=== PATIENT | male | born 1965 | race American Indian/Alaskan Native ===

== ENCOUNTER 2017-12-25 08:51 | Emergency (ER) | payer MEDICAID, OTHER ==
--- NOTE | 2017-12-25 09:26 | EDM.PDOC ---
ED HPI GENERAL MEDICAL PROBLEM - General Chief Complaint: Gastrointestinal Problem Stated Complaint: [id number] CANT GO TO THE BATHROOM (constipated) Time Seen by Provider: 12/25/17 09:26 Source of Information: Reports: Patient, RN, RN Notes Reviewed History Limitations: Reports: No Limitations - History of Present Illness INITIAL COMMENTS - FREE TEXT/NARRATIVE: Pt presents to the ER from home by POV with c/o constipation. Pt reports onset of gen. abdominal pressure, and mild crampy pain yesterday. He tried for "a long time" yesterday to have a BM, but only had a small very hard stool despite the urge to go more. He admits to nausea, and chills. Denies severe abdominal pain, RLQ abd. pain, vomiting, or fever. Denies urinary Sx's. The pt has not tried any medications, OTC or home remedies. Onset: Gradual Onset Date: 12/24/17 Duration: Constant, Getting Worse Location: Reports: Abdomen Quality: Reports: Pressure (and cramping pain) Severity: Moderate Improves with: Reports: None Worsens with: Reports: None Associated Symptoms: Reports: No Other Symptoms Abdomen Pain Score (Numeric/FACES): 7 - Related Data Allergies Allergy/AdvReac Type Severity Reaction Status Date / Time codeine Allergy Nausea and Verified 08/16/14 13:17 Vomiting Home Meds: Home Meds Albuterol [Proventil HFA] 1 puff INH DAILY 08/16/14 [History] Aspirin [Halfprin] 81 mg PO DAILY 08/16/14 [History] Fluticasone/Salmeterol [Advair HFA 115-21] 1 puff INH BID 08/16/14 [History] Hydrochlorothiazide 50 mg PO DAILY 08/16/14 [History] Loratadine 10 mg PO DAILY PRN 08/16/14 [History] Ranitidine [Zantac] 150 mg PO DAILY 08/16/14 [History] amLODIPine [Norvasc] 5 mg PO DAILY 08/16/14 [History] traMADol [Ultram] 50 mg PO Q6H PRN 08/16/14 [History] Past Medical History Cardiovascular History: Reports: Hypertension Respiratory History: Reports: Asthma Endocrine/Metabolic History: Reports: Obesity/BMI 30+ Social & Family History - Family History Family Medical History: Noncontributory - Recreational Drug Use Recreational Drug Type: Reports: Marijuana/Hashish Recreational Drug Use Frequency: Weekly - Living Situation & Occupation Occupation: Employed ED ROS GENERAL - Review of Systems Review Of Systems: ROS reveals no pertinent complaints other than HPI. ED EXAM, GI/ABD - Physical Exam Exam: See Below Exam Limited By: No Limitations General Appearance: Alert, WD/WN, No Apparent Distress, Obese Eyes: Bilateral: Normal Appearance (no scleral icterus) Nose: Normal Inspection Throat/Mouth: Normal Inspection, Normal Lips, Normal Oropharynx, Normal Voice, No Airway Compromise Head: Atraumatic, Normocephalic Neck: Normal Inspection, Supple, Non-Tender, Full Range of Motion Respiratory/Chest: No Respiratory Distress, Lungs Clear, Normal Breath Sounds, No Accessory Muscle Use, Chest Non-Tender Cardiovascular: Regular Rate, Rhythm, No Edema, No Murmur GI/Abdominal Exam: Normal Bowel Sounds, Soft, Non-Tender, No Distention, No Abnormal Bruit. No: Guarding, Rigid, Rebound (Male) Exam: Deferred Rectal (Males) Exam: Deferred Back Exam: Normal Inspection, Full Range of Motion. No: CVA Tenderness (L), CVA Tenderness (R) Extremities: Normal Inspection, Normal Range of Motion, Non-Tender, No Pedal Edema, Normal Capillary Refill Neurological: Alert, Oriented, CN II-XII Intact, Normal Cognition, Normal Gait, No Motor/Sensory Deficits Psychiatric: Normal Affect, Normal Mood Skin Exam: Warm, Dry, Intact, Normal Color, No Rash Course - Vital Signs Last Recorded V/S: Last Vital Signs Temp 36.8 C 12/25/17 09:27 Pulse 89 12/25/17 09:27 Resp 16 12/25/17 09:27 BP 136/81 12/25/17 09:27 Pulse Ox 97 12/25/17 09:27 - Orders/Labs/Meds Orders: Active Orders 24 hr Category Date Time Status Peripheral IV Care [RC] . DIRECTED Care 12/25/17 10:12 Active DRUG SCREEN URINE BIORAD [URCHEM] Stat Lab 12/25/17 10:01 Ordered UA W/MICROSCOPIC [URIN] Stat Lab 12/25/17 10:01 Ordered Sodium Chloride 0.9% [Saline Flush] Med 12/25/17 10:11 Active 10 ml FLUSH ASDIRECTED PRN Peripheral IV Insertion Adult [OM.PC] Stat Oth 12/25/17 10:12 Ordered Medication Orders Sodium Chloride (Saline Flush) 10 ml FLUSH ASDIRECTED PRN PRN Reason: Keep Vein Open Last Admin: 12/25/17 10:46 Dose: 10 ml Labs: Laboratory Tests 12/25/17 12/25/17 12/25/17 Range/Units 09:42 09:42 10:01 WBC 17.1 H (5.0-10.0) 10^3/uL RBC 4.85 (4.6-6.2) 10^6/uL Hgb 14.3 (14.0-18.0) g/dL Hct 42.4 (40.0-54.0) % MCV 87.4 (80-100) fL MCH 29.5 (27.0-34.0) pg MCHC 33.7 (33.0-35.0) g/dL Plt Count 388 (150-450) 10^3/uL Neut % (Auto) 75.7 H (42.2-75.2) % Lymph % (Auto) 12.2 L (20.5-50.1) % Tift % (Auto) 10.1 H (2-8) % Eos % (Auto) 1.7 (1.0-3.0) % Baso % (Auto) 0.3 (0.0-1.0) % Sodium 132 L (135-145) mmol/L Potassium 4.4 (3.6-5.0) mmol/L Chloride 100 L (101-111) mmol/L Carbon Dioxide 23.0 (21.0-31.0) mmol/L Anion Gap 13.4 BUN 15 (7-18) mg/dL Creatinine 1.3 (0.6-1.3) mg/dL Est Cr Clr Drug Dosing 58.62 mL/min Estimated GFR (MDRD) 58 BUN/Creatinine Ratio 11.53 Glucose 110 H (74-105) mg/dL Calcium 9.5 (8.4-10.2) mg/dl Total Bilirubin 0.9 (0.2-1.0) mg/dL AST 42 (10-42) IU/L ALT 45 (10-60) IU/L Alkaline Phosphatase 57 (42-121) IU/L Total Protein 8.2 (6.7-8.2) g/dl Albumin 4.6 (3.2-5.5) g/dl Globulin 3.6 Albumin/Globulin Ratio 1.28 Amylase 28 (28-100) U/L Lipase 22 (22-51) U/L Urine Color Yellow (YELLOW) Urine Appearance Clear (CLEAR) Urine pH 7.0 (5.0-9.0) Ur Specific [place] 1.015 (1.005-1.030) Urine Protein Negative (NEGATIVE) Urine Glucose (UA) Negative (NEGATIVE) Urine Ketones Negative (NEGATIVE) Urine Occult Blood Negative (NEGATIVE) Urine Nitrite Negative (NEGATIVE) Urine Bilirubin Negative (NEGATIVE) Urine Urobilinogen 0.2 (0.2-1.0) mg/dL Ur Leukocyte Esterase Negative (NEGATIVE) Urine RBC Not seen /HPF Urine WBC 0-5 (0-5/HPF) /HPF Ur Epithelial Cells Not seen /HPF Urine Bacteria Occasional (0-FEW/HPF) /HPF Urine Opiates Screen (NEGATIVE) Ur Oxycodone Screen (NEGATIVE) Urine Methadone Screen (NEGATIVE) Ur Barbiturates Screen (NEGATIVE) U Tricyclic Antidepress (NEGATIVE) Ur Phencyclidine Scrn (NEGATIVE) Ur Amphetamine Screen (NEGATIVE) U Methamphetamines Scrn (NEGATIVE) Urine MDMA Screen (NEGATIVE) U Benzodiazepines Scrn (NEGATIVE) Urine Cocaine Screen (NEGATIVE) U Marijuana (THC) Screen (NEGATIVE) Ethyl Alcohol < 5 mg/dL 12/25/17 Range/Units 10:01 WBC (5.0-10.0) 10^3/uL RBC (4.6-6.2) 10^6/uL Hgb (14.0-18.0) g/dL Hct (40.0-54.0) % MCV (80-100) fL MCH (27.0-34.0) pg MCHC (33.0-35.0) g/dL Plt Count (150-450) 10^3/uL Neut % (Auto) (42.2-75.2) % Lymph % (Auto) (20.5-50.1) % Tift % (Auto) (2-8) % Eos % (Auto) (1.0-3.0) % Baso % (Auto) (0.0-1.0) % Sodium (135-145) mmol/L Potassium (3.6-5.0) mmol/L Chloride (101-111) mmol/L Carbon Dioxide (21.0-31.0) mmol/L Anion Gap BUN (7-18) mg/dL Creatinine (0.6-1.3) mg/dL Est Cr Clr Drug Dosing mL/min Estimated GFR (MDRD) BUN/Creatinine Ratio Glucose (74-105) mg/dL Calcium (8.4-10.2) mg/dl Total Bilirubin (0.2-1.0) mg/dL AST (10-42) IU/L ALT (10-60) IU/L Alkaline Phosphatase (42-121) IU/L Total Protein (6.7-8.2) g/dl Albumin (3.2-5.5) g/dl Globulin Albumin/Globulin Ratio Amylase (28-100) U/L Lipase (22-51) U/L Urine Color (YELLOW) Urine Appearance (CLEAR) Urine pH (5.0-9.0) Ur Specific [place] (1.005-1.030) Urine Protein (NEGATIVE) Urine Glucose (UA) (NEGATIVE) Urine Ketones (NEGATIVE) Urine Occult Blood (NEGATIVE) Urine Nitrite (NEGATIVE) Urine Bilirubin (NEGATIVE) Urine Urobilinogen (0.2-1.0) mg/dL Ur Leukocyte Esterase (NEGATIVE) Urine RBC /HPF Urine WBC (0-5/HPF) /HPF Ur Epithelial Cells /HPF Urine Bacteria (0-FEW/HPF) /HPF Urine Opiates Screen Negative (NEGATIVE) Ur Oxycodone Screen Negative (NEGATIVE) Urine Methadone Screen Negative (NEGATIVE) Ur Barbiturates Screen Negative (NEGATIVE) U Tricyclic Antidepress Negative (NEGATIVE) Ur Phencyclidine Scrn Negative (NEGATIVE) Ur Amphetamine Screen Negative (NEGATIVE) U Methamphetamines Scrn Negative (NEGATIVE) Urine MDMA Screen Negative (NEGATIVE) U Benzodiazepines Scrn Negative (NEGATIVE) Urine Cocaine Screen Negative (NEGATIVE) U Marijuana (THC) Screen Positive H (NEGATIVE) Ethyl Alcohol mg/dL Meds: Medications Generic Name Dose Route Start Last Admin Trade Name Freq PRN Reason Stop Dose Admin Sodium Chloride 10 ml 12/25/17 10:11 12/25/17 10:46 Saline Flush FLUSH 10 ml ASDIRECTED PRN Administration Keep Vein Open Discontinued Medications Generic Name Dose Route Start Last Admin Trade Name Freq PRN Reason Stop Dose Admin Iopamidol 100 ml 12/25/17 10:31 12/25/17 11:20 Isovue-300 (61%) IVPUSH 12/25/17 10:32 100 ml ONETIME ONE Administration Ondansetron HCl 4 mg 12/25/17 09:31 12/25/17 09:44 Zofran Odt PO 12/25/17 09:32 4 mg ONETIME ONE Administration - Radiology Interpretation Free Text/Narrative:: [facility] [place] [facility] Final Radiology Report Call: [phone] assistance Online chat: [email or web address] Name: KATI GALAN Age: 52Years M Date: 12/25/2017 SSN: -- : [id number] Study: CT ABDOMEN/PELVIS W Requesting Physician: JAMEY SHRESTHA Images: [id number] Addl Studies: Provided Clinical History: Contrast: With Contrast Medium: [id number] Contrast Amount: 100 mL Contrast Method: left hand Page 1 of 2 EXAM: CT Abdomen and Pelvis With Intravenous Contrast CLINICAL HISTORY: The patient is 52 years-old, male; Signs and symptoms; Nausea and other: Abd pain, wbc 17,000 TECHNIQUE: Axial computed tomography images of the abdomen and pelvis with intravenous contrast. All CT scans at this facility use at least one of these dose optimization techniques: automated exposure control; mA and/or kV adjustment per patient size (includes targeted exams where dose is matched to clinical indication); or iterative reconstruction. Coronal and sagittal reformatted images were created and reviewed. CONTRAST: 100 mL of [id number] administered intravenously. COMPARISON: No relevant prior studies available. FINDINGS: Lung bases: Unremarkable. No mass. No consolidation. ABDOMEN: Liver: Unremarkable. No mass. Gallbladder and bile ducts: Unremarkable. No ductal dilation. Pancreas: Unremarkable. No mass. No ductal dilation. Spleen: Unremarkable. No splenomegaly. Adrenals: Unremarkable. No mass. Kidneys and ureters: No solid mass. No hydronephrosis. KATI GALAN | Final Radiology Report CONFIDENTIALITY STATEMENT This report is intended only for use by the referring physician, and only in accordance with law. If you received this in error, call [phone]. Page 2 of 2 Stomach and bowel: Bowel wall thickening in the ascending colon, minimal pericolonic edema/inflammation. No obstruction. Unremarkable small bowel. Underdistention of the stomach, gastric wall thickening cannot be excluded. PELVIS: Appendix: No findings to suggest acute appendicitis. Bladder: Underdistended bladder. Reproductive: No acute findings. ABDOMEN and PELVIS: Intraperitoneal space: No free fluid or pneumoperitoneum. No abscess. Bones/joints: No acute findings. Soft tissues: Unremarkable. Vasculature: No abdominal aortic aneurysm. Lymph nodes: No significant adenopathy. IMPRESSION: Ascending colitis, consider followup colonoscopy. Thank you for allowing us to participate in the care of your patient. Dictated and Authenticated by: Hung Perdue MD 12/25/2017 12:10 PM Central Time Departure - Departure Time of Disposition: 12:12 Disposition: Home, Self-Care 01 Condition: Good Clinical Impression: Colitis Constipation Qualifiers: Constipation type: unspecified constipation type Qualified Code(s): K59.00 - Constipation, unspecified - Discharge Information Instructions: Constipation, Adult, Colitis Forms: ED Department Discharge Additional Instructions: Rx: Cipro 500mg Rx: Flagyl 500mg Rx: Miralax Drink plenty of water. Eat fresh fruits and vegetables. Follow up in clinic this week for recheck and discuss a referral to a GI specialist for colonoscopy with your doctor. - My Orders Last 24 Hours: My Active Orders 12/25/17 10:01 DRUG SCREEN URINE BIORAD [URCHEM] Stat UA W/MICROSCOPIC [URIN] Stat 12/25/17 10:11 Sodium Chloride 0.9% [Saline Flush] 10 ml FLUSH ASDIRECTED PRN 12/25/17 10:12 Peripheral IV Care [RC] . DIRECTED Peripheral IV Insertion Adult [OM.PC] Stat - Assessment/Plan Last 24 Hours: My Active Orders 12/25/17 10:01 DRUG SCREEN URINE BIORAD [URCHEM] Stat UA W/MICROSCOPIC [URIN] Stat 12/25/17 10:11 Sodium Chloride 0.9% [Saline Flush] 10 ml FLUSH ASDIRECTED PRN 12/25/17 10:12 Peripheral IV Care [RC] . DIRECTED Peripheral IV Insertion Adult [OM.PC] Stat
[2017-12-25 09:28] VITALS: BP 136/81
[2017-12-25] MEDS ORDERED: Ondansetron 4 MG Tab.DIS PO ONE (09:31)
[2017-12-25 10:09] LABS: ANION GAP 13.4; CHLORIDE,CL 100 mmol/L (101-111); SODIUM,NA 132 mmol/L (135-145)
[2017-12-25] MEDS ORDERED: Sodium Chloride 0.9% 10 ML Syringe FLUSH PRN (10:11)
[2017-12-25] MEDS ORDERED: Iopamidol 612 MG/ML 100 ML Bottle IVPUSH ONE (10:31)
== END 2017-12-25 12:30 | disposition home or self-care (01) ==
LOC: DL.ED 08:51
DX: K52.9 Noninfective gastroenteritis and colitis, unspecified (principal); K59.00 Constipation, unspecified; E66.9 Obesity, unspecified; I10 Essential (primary) hypertension; Z88.5 Allergy status to narcotic agent; Z79.82 Long term (current) use of aspirin
CPT/HCPCS: 36415; 74177; 80053; 80305; 81001; 82150; 83690; 85025; 99284; A9270; G0480; J7050; Q9967

== ENCOUNTER 2020-03-01 12:17 | Emergency (ER) | payer MEDICAID, OTHER ==
[2020-03-01] MEDS ORDERED: Albuterol/Ipratropium 3.0-0.5 MG/3 ML Neb Soln NEB ONE (12:28)
[2020-03-01] MEDS ORDERED: predniSONE 20 MG Tab PO ONE (12:28)
[2020-03-01 12:29] VITALS: BP 129/69
[2020-03-01] MEDS ORDERED: LORazepam 0.5 MG Tab PO ONE (12:29)
[2020-03-01] MEDS ORDERED: Lactulose Soln 10 GM/15 ML 30 ML UD Cup PO ONE (12:29)
[2020-03-01] MEDS ORDERED: Albuterol/Ipratropium 3.0-0.5 MG/3 ML Neb Soln ONE (12:31)
[2020-03-01 12:38] VITALS: PULSE 92
--- NOTE | 2020-03-01 12:55 | EDM.PDOC ---
Scribed by Katie Stahl 03/01/20 1233 for Danny Longoria MD ED HPI GENERAL MEDICAL PROBLEM - General Chief Complaint: Respiratory Problem Stated Complaint: AMBULANCE Time Seen by Provider: 03/01/20 12:24 Source of Information: Reports: Patient, EMS, RN, RN Notes Reviewed History Limitations: Reports: No Limitations - History of Present Illness INITIAL COMMENTS - FREE TEXT/NARRATIVE: Patient arrives from home by [facility] with c/o wheezing, asthma flare up, constipation, and anxiety. Pt reports that he has had some increased shortness of breath for a couple of days. He says he has daily anxiety for years. Also c/o frequent problems with constipation. Denies fever or chills. He says he has anxiety from worrying about his children, and plans to f/u with [facility]. Onset: Gradual Duration: Constant Location: Reports: Chest Quality: Reports: Other (Denies pain) Severity: Moderate Improves with: Reports: Medication (Albuterol nebulizer treatments) Worsens with: Reports: None Associated Symptoms: Reports: No Other Symptoms Treatments HORSE BREAKER: Reports: Breathing Treatments - Related Data Allergies Allergy/AdvReac Type Severity Reaction Status Date / Time codeine Allergy Nausea and Verified 08/16/14 13:17 Vomiting Home Meds: Home Meds Albuterol [Proventil HFA] 1 puff INH DAILY 08/16/14 [History] Aspirin [Halfprin] 81 mg PO DAILY 08/16/14 [History] Fluticasone/Salmeterol [Advair HFA 115-21] 1 puff INH BID 08/16/14 [History] Loratadine 10 mg PO DAILY PRN 08/16/14 [History] Ranitidine [Zantac] 150 mg PO DAILY 08/16/14 [History] amLODIPine [Norvasc] 5 mg PO DAILY 08/16/14 [History] hydroCHLOROthiazide [Hydrochlorothiazide] 50 mg PO DAILY 08/16/14 [History] traMADol [Ultram] 50 mg PO Q6H PRN 08/16/14 [History] Past Medical History Cardiovascular History: Reports: Hypertension Respiratory History: Reports: Asthma Gastrointestinal History: Reports: Chronic Constipation Psychiatric History: Reports: Anxiety Endocrine/Metabolic History: Reports: Obesity/BMI 30+ Social & Family History - Family History Family Medical History: Noncontributory - Caffeine Use Caffeine Use: Reports: Coffee, Soda, Tea - Alcohol Use Alcohol Use History: No - Recreational Drug Use Recreational Drug Use: Yes Drug Use in Last 12 Months: Yes Recreational Drug Type: Reports: Marijuana/Hashish, Oxycodone, Vicodin Recreational Drug Use Frequency: Patient Refuses To Answer Recreational Drug Route: Reports: Oral - Living Situation & Occupation Occupation: Employed ED ROS GENERAL - Review of Systems Review Of Systems: Comprehensive ROS is negative, except as noted in HPI. ED EXAM, GENERAL - Physical Exam Exam: See Below Exam Limited By: No Limitations General Appearance: Alert, WD/WN, No Apparent Distress, Anxious Eye Exam: Bilateral Eye: Normal Inspection Nose: Normal Inspection Throat/Mouth: Normal Lips, Normal Voice, No Airway Compromise Head: Atraumatic, Normocephalic Neck: Normal Inspection Respiratory/Chest: No Respiratory Distress, No Accessory Muscle Use, Chest Non- Tender, Wheezing. No: Crackles, Rales, Rhonchi, Stridor Cardiovascular: Regular Rate, Rhythm, No Edema GI/Abdominal: Normal Bowel Sounds, Soft, Non-Tender Back Exam: Normal Inspection Extremities: Normal Inspection, Normal Range of Motion, Non-Tender, No Pedal Edema, Normal Capillary Refill. No: Joint Swelling Neurological: Alert, Oriented, No Motor/Sensory Deficits Psychiatric: Normal Affect, Anxious Skin Exam: Warm, Dry, Intact, Normal Color, No Rash Course - Vital Signs Last Recorded V/S: Last Vital Signs Temp 98.3 F 03/01/20 12:28 Pulse 92 03/01/20 12:28 Resp 18 03/01/20 12:28 BP 129/69 03/01/20 12:28 Pulse Ox 91 L 03/01/20 12:28 - Orders/Labs/Meds Orders: Active Orders 24 hr Category Date Time Status RT Aerosol Therapy [RC] ASDIRECTED Care 03/01/20 12:28 Active Meds: Medications Discontinued Medications Generic Name Dose Route Start Last Admin Trade Name Marshall PRN Reason Stop Dose Admin Albuterol/Ipratropium 3 ml 03/01/20 12:28 03/01/20 12:35 Duoneb 3.0-0.5 Mg/3 Ml NEB 03/01/20 12:29 3 ml ONETIME ONE Administration Albuterol/Ipratropium Confirm 03/01/20 12:31 03/01/20 12:35 Duoneb 3.0-0.5 Mg/3 Ml Administered 03/01/20 12:32 Not Given Dose 3 ml .ROUTE .STK-MED ONE Lactulose 40 gm 03/01/20 12:29 03/01/20 12:39 Cephulac PO 03/01/20 12:30 40 gm ONETIME ONE Administration Lorazepam 1 mg 03/01/20 12:29 03/01/20 12:39 Ativan PO 03/01/20 12:30 1 mg ONETIME ONE Administration Prednisone 60 mg 03/01/20 12:28 03/01/20 12:39 Prednisone PO 03/01/20 12:29 60 mg ONETIME ONE Administration - Re-Assessments/Exams Free Text/Narrative Re-Assessment/Exam: 03/01/20 12:45 Pt reports feeling improved following tx in ER and wishes to go home. Departure - Departure Time of Disposition: 12:48 Disposition: Home, Self-Care 01 Condition: Good Clinical Impression: Acute asthma Constipation Qualifiers: Constipation type: other constipation type Qualified Code(s): K59.09 - Other constipation Anxiety disorder Qualifiers: Anxiety disorder type: generalized anxiety disorder Qualified Code(s): F41.1 - Generalized anxiety disorder - Discharge Information *PRESCRIPTION DRUG MONITORING PROGRAM REVIEWED*: Not Applicable *COPY OF PRESCRIPTION DRUG MONITORING REPORT IN PATIENT TAHIR: Not Applicable Instructions: Constipation, Adult, [id number], Asthma Attack, Living With Anxiety Forms: ED Department Discharge Additional Instructions: Rx: Prednisone 20mg Rx: Lactulose Syrup Use your Albuterol nebulizer every four hours while awake until wheezing resolves and breathing improves. Drink plenty of water. Follow up in clinic in 3 to 4 days for recheck. Sepsis Event Note (ED) - Focused Exam Vital Signs: Vital Signs Temp Pulse Resp BP Pulse Ox Pulse Ox 03/01/20 12:28 98.3 F 92 18 129/69 92 L 91 L - My Orders Last 24 Hours: My Active Orders 03/01/20 12:28 RT Aerosol Therapy [RC] ASDIRECTED - Assessment/Plan Last 24 Hours: My Active Orders 03/01/20 12:28 RT Aerosol Therapy [RC] ASDIRECTED I have read and agree with the documentation that has been completed regarding this visit. By signing this record, I attest that the documentation was completed in my physical presence and is an accurate record of the encounter.
== END 2020-03-01 12:54 | disposition home or self-care (01) ==
LOC: DL.ED 12:17
DX: J45.901 Unspecified asthma with (acute) exacerbation (principal); K59.09 Other constipation; I10 Essential (primary) hypertension; E66.9 Obesity, unspecified; Z79.82 Long term (current) use of aspirin; Z79.899 Other long term (current) drug therapy; Z88.5 Allergy status to narcotic agent; Z68.31 Body mass index [BMI] 31.0-31.9, adult
CPT/HCPCS: 94640; 99285; A9270; J7512; 99283; J7620-GY

== ENCOUNTER 2020-03-21 10:34 | Emergency (ER) | payer MEDICAID, OTHER ==
[2020-03-21] MEDS ORDERED: Sodium Chloride 0.9% 10 ML Syringe FLUSH PRN (10:35)
--- NOTE | 2020-03-21 10:37 | EDM.PDOC ---
ED HPI GENERAL MEDICAL PROBLEM - General Chief Complaint: Gastrointestinal Problem Stated Complaint: [facility] [place] Time Seen by Provider: 03/21/20 10:37 Source of Information: Reports: Patient, EMS, Old Records, RN, RN Notes Reviewed History Limitations: Reports: No Limitations - History of Present Illness INITIAL COMMENTS - FREE TEXT/NARRATIVE: Pt sent from [facility] by Joshua Frias NP with report that pt was found to have a Hgb of 5.9 in clinic today. He presented to clinic with complaint of constipation and dark stools. He denies sydnie blood or melena, nausea, vomiting, shortness of breath, chest pain, or lightheadedness. He admits to fatigue and occasion mild to moderate pain in the epigastric and left sided abdomen. Denies history of alcohol abuse, or prior GI bleed. Records indicate he had a Hgb of 14 in December 2019. No history of anticoagulant tx. He take Aspirin 81mg daily. Onset: Unknown/Unsure Location: Reports: Abdomen, Generalized Quality: Reports: Ache (epigastric) Severity: Mild Improves with: Reports: None Worsens with: Reports: None Associated Symptoms: Reports: No Other Symptoms - Related Data Allergies Allergy/AdvReac Type Severity Reaction Status Date / Time codeine Allergy Nausea and Verified 03/21/20 10:46 Vomiting Home Meds: Home Meds Albuterol [Proventil HFA] 1 puff INH QID 08/16/14 [History] Aspirin [Halfprin] 81 mg PO DAILY 08/16/14 [History] Fluticasone/Salmeterol [Advair HFA 115-21] 1 puff INH BID 08/16/14 [History] Loratadine 10 mg PO DAILY PRN 08/16/14 [History] Ranitidine [Zantac] 150 mg PO DAILY 08/16/14 [History] amLODIPine [Norvasc] 5 mg PO DAILY 08/16/14 [History] hydroCHLOROthiazide [Hydrochlorothiazide] 50 mg PO DAILY 08/16/14 [History] traMADol [Ultram] 50 mg PO Q6H PRN 08/16/14 [History] Albuterol Sulfate 1.25 mg IH Q4HR PRN 03/21/20 [History] Escitalopram Oxalate [Lexapro] 10 mg PO DAILY 03/21/20 [History] Hydrocortisone Acetate 25 mg RC BID 03/21/20 [History] Levothyroxine Sodium [Euthyrox] 75 mcg PO DAILY 03/21/20 [History] Omeprazole 20 mg PO DAILY 03/21/20 [History] diphenhydrAMINE HCL [Diphenhydramine HCl] 100 mg PO BEDTIME PRN 03/21/20 [History] lisinopriL [Lisinopril] 20 mg PO DAILY 03/21/20 [History] Past Medical History Cardiovascular History: Reports: Hypertension Respiratory History: Reports: Asthma Gastrointestinal History: Reports: Chronic Constipation Psychiatric History: Reports: Anxiety Endocrine/Metabolic History: Reports: Obesity/BMI 30+ Social & Family History - Family History Family Medical History: Noncontributory - Caffeine Use Caffeine Use: Reports: Coffee, Soda, Tea - Living Situation & Occupation Occupation: Employed ED ROS GENERAL - Review of Systems Review Of Systems: Comprehensive ROS is negative, except as noted in HPI. ED EXAM, GI/ABD - Physical Exam Exam: See Below Exam Limited By: No Limitations General Appearance: Alert, WD/WN, No Apparent Distress Eyes: Bilateral: Pale Conjunctiva Ears: Hearing Grossly Normal Nose: Normal Inspection, Normal Mucosa, No Blood Throat/Mouth: Normal Inspection, Normal Lips, Normal Voice, No Airway Compromise, Other (No gingival bleeding) Head: Atraumatic, Normocephalic Neck: Normal Inspection, Supple, Non-Tender, Full Range of Motion Respiratory/Chest: No Respiratory Distress, Lungs Clear, Normal Breath Sounds, No Accessory Muscle Use, Chest Non-Tender Cardiovascular: Normal Peripheral Pulses, Regular Rate, Rhythm, No Edema, No Gallop, No JVD, No Murmur, No Rub. No: Tachycardia GI/Abdominal Exam: Normal Bowel Sounds, Soft, Non-Tender, No Organomegaly, No Distention, No Abnormal Bruit, No Mass, Pelvis Stable (Male) Exam: Deferred Rectal (Males) Exam: Heme - Stool Back Exam: Normal Inspection Extremities: Normal Inspection, Normal Range of Motion, Non-Tender, Normal Capillary Refill, No Pedal Edema Neurological: Alert, Oriented, CN II-XII Intact, Normal Cognition, Normal Gait, No Motor/Sensory Deficits Psychiatric: Normal Affect, Normal Mood Skin Exam: Warm, Dry, Intact, No Rash, Pallor. No: Ecchymosis, Jaundice, Petechiae Course - Vital Signs Last Recorded V/S: Last Vital Signs Temp 97.7 F 10/02/20 10:46 Pulse 80 03/21/20 10:46 Resp 16 03/21/20 10:46 BP 110/48 L 03/21/20 10:46 Pulse Ox 100 03/21/20 10:46 - Orders/Labs/Meds Orders: Active Orders 24 hr Category Date Time Status Notify Provider [RC] PRN Care 03/21/20 11:48 Active Peripheral IV Care [RC] . DIRECTED Care 03/21/20 10:35 Active Verify Patient Consent Obtain [RC] ASDIRECTED Care 03/21/20 11:47 Active RED BLOOD CELLS LP [BBK] Stat Lab 03/21/20 11:03 Results TYPE AND SCREEN [BBK] Stat Lab 03/21/20 11:03 Results UA RFX SURAJ AND CULT IF INDIC [URIN] Stat Lab 03/21/20 12:06 Received Pantoprazole [ProTONIX IV] 40 mg Med 03/21/20 12:00 Active Sodium Chloride 0.9% [Normal Saline] 100 ml IV .CONTINUOS Sodium Chloride 0.9% [Saline Flush] Med 03/21/20 10:35 Active 10 ml FLUSH ASDIRECTED PRN Blood Transfusion Reflex Orders [OM.PC] Routine Oth 03/21/20 10:36 Ordered Blood Transfusion Reflex Orders [OM.PC] Routine Oth 03/21/20 11:46 Ordered Peripheral IV Insertion Adult [OM.PC] Stat Oth 03/21/20 10:35 Ordered Transfuse Red Blood Cells [COMM] Stat Oth 03/21/20 11:46 Ordered Medication Orders Pantoprazole Sodium 40 mg/ (Sodium Chloride) 100 mls @ 20 mls/hr IV .CONTINUOS RIVERA Last Admin: 03/21/20 12:10 Dose: 20 mls/hr Documented by: JOESPH Sodium Chloride (Saline Flush) 10 ml FLUSH ASDIRECTED PRN PRN Reason: Keep Vein Open Last Admin: 03/21/20 12:11 Dose: 10 ml Documented by: JOESPH Labs: Laboratory Tests 03/21/20 03/21/20 03/21/20 Range/Units 11:03 11:03 11:03 WBC 7.0 (5.0-10.0) 10^3/uL RBC 3.25 L (4.6-6.2) 10^6/uL Hgb 5.6 L* D (14.0-18.0) g/dL Hct 21.2 L (40.0-54.0) % MCV 65.2 L D (80-100) fL MCH 17.2 L (27.0-34.0) pg MCHC 26.4 L (33.0-35.0) g/dL Plt Count 533 H D (150-450) 10^3/uL Neut % (Auto) 62.0 (42.2-75.2) % Lymph % (Auto) 14.4 L (20.5-50.1) % Wharton % (Auto) 10.4 H (2-8) % Eos % (Auto) 10.6 H (1.0-3.0) % Baso % (Auto) 2.6 H (0.0-1.0) % Add Manual Diff Yes Neutrophils % (Manual) 65 (42-75) % Lymphocytes % (Manual) 13 L (20-50) % Monocytes % (Manual) 9 H (2-8) % Eosinophils % (Manual) 10 H (1-3) % Basophils % (Manual) 3 Hypochromasia 4+ Microcytosis 2+ moderate Target Cells 1+ slight Ovalocytes 1+ slight PT 9.5 (9.0-12.0) SEC INR 1.0 (0.9-1.2) APTT 21.3 L (22.0-34.0) SEC Sodium 136 (136-145) mmol/L Potassium 4.3 (3.5-5.1) mmol/L Chloride 99 (98-107) mmol/L Carbon Dioxide 29 (21-32) mmol/L Anion Gap 12.3 (7-13) mEq/L BUN 9 (7-18) mg/dL Creatinine 1.48 H (0.70-1.30) mg/dL Est Cr Clr Drug Dosing 50.29 mL/min Estimated GFR (MDRD) 49 BUN/Creatinine Ratio 6.1 (No establ ref range) Glucose 97 (74-99) mg/dL Lactic Acid (0.4-2.0) mmol/L Calcium 8.7 (8.5-10.1) mg/dL Total Bilirubin 0.3 (0.2-1.0) mg/dL AST 20 (15-37) U/L ALT 24 (16-63) U/L Alkaline Phosphatase 59 (46-116) U/L Total Protein 6.9 (6.4-8.2) g/dL Albumin 3.2 L (3.4-5.0) g/dL Globulin 3.7 Albumin/Globulin Ratio 0.86 Amylase 23 L (25-115) U/L Lipase 67 L (73-393) U/L Blood Type Gel Antibody Screen Crossmatch 03/21/20 03/21/20 Range/Units 11:03 11:03 WBC (5.0-10.0) 10^3/uL RBC (4.6-6.2) 10^6/uL Hgb (14.0-18.0) g/dL Hct (40.0-54.0) % MCV (80-100) fL MCH (27.0-34.0) pg MCHC (33.0-35.0) g/dL Plt Count (150-450) 10^3/uL Neut % (Auto) (42.2-75.2) % Lymph % (Auto) (20.5-50.1) % Wharton % (Auto) (2-8) % Eos % (Auto) (1.0-3.0) % Baso % (Auto) (0.0-1.0) % Add Manual Diff Neutrophils % (Manual) (42-75) % Lymphocytes % (Manual) (20-50) % Monocytes % (Manual) (2-8) % Eosinophils % (Manual) (1-3) % Basophils % (Manual) Hypochromasia Microcytosis Target Cells Ovalocytes PT (9.0-12.0) SEC INR (0.9-1.2) APTT (22.0-34.0) SEC Sodium (136-145) mmol/L Potassium (3.5-5.1) mmol/L Chloride (98-107) mmol/L Carbon Dioxide (21-32) mmol/L Anion Gap (7-13) mEq/L BUN (7-18) mg/dL Creatinine (0.70-1.30) mg/dL Est Cr Clr Drug Dosing mL/min Estimated GFR (MDRD) BUN/Creatinine Ratio (No establ ref range) Glucose (74-99) mg/dL Lactic Acid 1.0 (0.4-2.0) mmol/L Calcium (8.5-10.1) mg/dL Total Bilirubin (0.2-1.0) mg/dL AST (15-37) U/L ALT (16-63) U/L Alkaline Phosphatase (46-116) U/L Total Protein (6.4-8.2) g/dL Albumin (3.4-5.0) g/dL Globulin Albumin/Globulin Ratio Amylase (25-115) U/L Lipase (73-393) U/L Blood Type O POSITIVE Gel Antibody Screen Negative Crossmatch See Detail Meds: Medications Generic Name Dose Route Start Last Admin Trade Name Freq PRN Reason Stop Dose Admin Pantoprazole Sodium 40 mg/ 100 mls @ 20 mls/hr 03/21/20 12:00 03/21/20 12:10 Sodium Chloride IV 20 mls/hr .CONTINUOS RIVERA Administration Sodium Chloride 10 ml 03/21/20 10:35 03/21/20 12:11 Saline Flush FLUSH 10 ml ASDIRECTED PRN Administration Keep Vein Open Discontinued Medications Generic Name Dose Route Start Last Admin Trade Name Freq PRN Reason Stop Dose Admin Acetaminophen 650 mg 03/21/20 11:46 03/21/20 12:09 Tylenol PO 03/21/20 11:47 650 mg NOW ONE Administration Diphenhydramine HCl 25 mg 03/21/20 11:46 03/21/20 12:07 Benadryl IV 03/21/20 11:47 25 mg ONETIME ONE Administration Furosemide 40 mg 03/21/20 11:46 03/21/20 12:09 Lasix IVPUSH 03/21/20 11:47 40 mg NOW ONE Administration Pantoprazole Sodium 80 mg 03/21/20 11:45 03/21/20 12:11 Protonix Iv IVPUSH 03/21/20 11:46 80 mg .BOLUS ONE Administration Departure - Departure Time of Disposition: 12:27 Disposition: DC/Tfer to Acute Hospital 02 Condition: Fair, Serious Clinical Impression: Anemia due to blood loss GI bleed Qualifiers: GI bleed type/associated pathology: unspecified gastrointestinal hemorrhage type Qualified Code(s): K92.2 - Gastrointestinal hemorrhage, unspecified - Discharge Information *PRESCRIPTION DRUG MONITORING PROGRAM REVIEWED*: Not Applicable *COPY OF PRESCRIPTION DRUG MONITORING REPORT IN PATIENT TAHIR: Not Applicable Forms: ED Department Discharge, Interfacility Transfer SADIE Sepsis Event Note (ED) - Focused Exam Vital Signs: Vital Signs Temp Pulse Resp BP Pulse Ox 03/21/20 10:46 97.7 F 80 16 110/48 L 100 - My Orders Last 24 Hours: My Active Orders 03/21/20 10:35 Peripheral IV Care [RC] . DIRECTED Sodium Chloride 0.9% [Saline Flush] 10 ml FLUSH ASDIRECTED PRN Peripheral IV Insertion Adult [OM.PC] Stat 03/21/20 10:36 Blood Transfusion Reflex Orders [OM.PC] Routine 03/21/20 11:03 RED BLOOD CELLS LP [BBK] Stat TYPE AND SCREEN [BBK] Stat 03/21/20 11:46 Blood Transfusion Reflex Orders [OM.PC] Routine Transfuse Red Blood Cells [COMM] Stat 03/21/20 11:47 Verify Patient Consent Obtain [RC] ASDIRECTED 03/21/20 11:48 Notify Provider [RC] PRN 03/21/20 12:00 Pantoprazole [ProTONIX IV] 40 mg Sodium Chloride 0.9% [Normal Saline] 100 ml IV .CONTINUOS 03/21/20 12:06 UA RFX SURAJ AND CULT IF INDIC [URIN] Stat - Assessment/Plan Last 24 Hours: My Active Orders 03/21/20 10:35 Peripheral IV Care [RC] . DIRECTED Sodium Chloride 0.9% [Saline Flush] 10 ml FLUSH ASDIRECTED PRN Peripheral IV Insertion Adult [OM.PC] Stat 03/21/20 10:36 Blood Transfusion Reflex Orders [OM.PC] Routine 03/21/20 11:03 RED BLOOD CELLS LP [BBK] Stat TYPE AND SCREEN [BBK] Stat 03/21/20 11:46 Blood Transfusion Reflex Orders [OM.PC] Routine Transfuse Red Blood Cells [COMM] Stat 03/21/20 11:47 Verify Patient Consent Obtain [RC] ASDIRECTED 03/21/20 11:48 Notify Provider [RC] PRN 03/21/20 12:00 Pantoprazole [ProTONIX IV] 40 mg Sodium Chloride 0.9% [Normal Saline] 100 ml IV .CONTINUOS 03/21/20 12:06 UA RFX SURAJ AND CULT IF INDIC [URIN] Stat
[2020-03-21 11:30] LABS: PTT,PARTIAL THROMBOPLSTIN TIME 21.3 SEC (22.0-34.0)
[2020-03-21] MEDS ORDERED: Pantoprazole 40 MG Vial IVPUSH ONE (11:45)
[2020-03-21] MEDS ORDERED: diphenhydrAMINE 50 MG/ML SDV IV ONE (11:46)
[2020-03-21] MEDS ORDERED: Furosemide 40 MG/4 ML VIAL IVPUSH ONE (11:46)
[2020-03-21] MEDS ORDERED: Acetaminophen 325 MG Tab PO ONE (11:46)
[2020-03-21 11:53] LABS: ANION GAP 12.3 mEq/L (7-13)
[2020-03-21] MEDS ORDERED: Pantoprazole 40 MG in Sodium Chloride 0.9% 100 ML IV SCH (12:00)
[2020-03-21 14:01] VITALS: BP 101/58; PULSE 78
== END 2020-03-21 14:36 ==
LOC: DL.ED 10:34
DX: K92.2 Gastrointestinal hemorrhage, unspecified (principal); D50.0 Iron deficiency anemia secondary to blood loss (chronic); F41.9 Anxiety disorder, unspecified; E66.9 Obesity, unspecified; Z68.32 Body mass index [BMI] 32.0-32.9, adult; I10 Essential (primary) hypertension; J45.909 Unspecified asthma, uncomplicated; Z88.5 Allergy status to narcotic agent; Z79.82 Long term (current) use of aspirin; Z79.899 Other long term (current) drug therapy
CPT/HCPCS: 36415; 36430; 80053; 81003; 82150; 82272; 83605; 83690; 85025; 85610; 85730; 86850; 86900; 86901; 86920; 86922; 87635; 96365; 96366; 96375; 96376; 99285; A9270; C9113; J1200; J1940; J7050; P9016; 99284; U0002

== ENCOUNTER 2020-04-22 06:07 | Day surgery (SDC) | payer MEDICAID, OTHER ==
[~2020-04-22 06:07] MED LIST: Sodium Chloride 0.9% 10 ML Syringe FLUSH PRN
[2020-04-22] MEDS ORDERED: fentaNYL 100 MCG/2 ML SDV IV ONE (06:08)
[2020-04-22] MEDS ORDERED: Midazolam 1 MG/ML 2 ML SDV IV ONE (06:08)
[2020-04-22] MEDS ORDERED: Midazolam 1 MG/ML 2 ML SDV ONE (06:11)
[2020-04-22] MEDS ORDERED: fentaNYL 100 MCG/2 ML SDV ONE (06:12)
[2020-04-22] MEDS: Dextrose 5%-0.45% NaCl 1,000 ML IV SCH (06:29)
[2020-04-22] MEDS: fentaNYL 100 MCG/2 ML SDV IV ONE ×5 (07:09→07:33)
[2020-04-22] MEDS: Midazolam 1 MG/ML 2 ML SDV IV ONE ×6 (07:10→07:21)
[2020-04-22 08:20] VITALS: BP 115/97; PULSE 75
--- NOTE | 2020-04-22 08:28 | OR ---
DATE: 04/22/2020 PROCEDURES: Total colonoscopy, narrow-band imaging, and cold snare polypectomy. INSTRUMENT USED: [id number] Olympus video colonoscope. PREMEDICATIONS: Fentanyl 175 mcg intravenous, Versed 4 mg intravenous, nasal O2 cannula. The procedure was done under pulse oximetry, BP recording, and nurse monitoring. INDICATION: The patient with rectal bleeding. Colonoscopic examination is done for detection of any polypoid lesions and removal, endoscopic hemostasis therapy if needed. DESCRIPTION OF PROCEDURE: Initial rectal exam was unremarkable. Rigid anoscopy showed small internal hemorrhoids without bleeding from them. The colonoscope was passed up to the cecal area. Photographs were taken of the cecum. No bleeding was noted from any of the visualized areas at the commencement of the examination. The bowel preparation was inadequate, large amount of fecal material noted that had to be aspirated, Austin scale 1 right and left colon, 2 transverse colon, total score 4. The colon was found to be normal and redundant. In the proximal transverse colon area, 5 mm sized benign-appearing polyp was noted, photographs were taken, NBI views were obtained, cold snare polypectomy was done, the tissue was retrieved and sent for histopathology. No stricture. No vascular ectasia. No large isolated ulcerations seen. No evidence of diffuse inflammatory bowel disease in the form of friability, contact bleeding, or ulcerations. Probing the proximal sides of folds and flexures using adequate distention and clearing up the stool material, withdrawal of the scope was made, cecum to rectum time over 6 minutes. No bleeding was noted from any of the visualized areas at the completion of examination. IMPRESSION: 1. Internal hemorrhoids. 2. Transverse colon polyp. The patient tolerated the procedure well. [facility] /[id number]
--- NOTE | 2020-04-22 13:18 | LETTER ---
04/22/2020 Jaiden Anthony NP [facility] [address] [place] [address] RE: KATI DESAI : 1965 Dear Jaiden Anthony, . Mr. Kati Desai had colonoscopy done this morning and he tolerated the procedure well. I herewith send a copy of the endoscopy note and photographs for your review. Thank you. Sincerely, MODL /[id number]
== END 2020-04-22 09:50 | disposition home or self-care (01) ==
LOC: DL.ENDO 06:07
PROVIDERS: ATTEND Internal Medicine Gastroenterology
DX: D12.3 Benign neoplasm of transverse colon (principal); K64.8 Other hemorrhoids; E66.09 Other obesity due to excess calories; I10 Essential (primary) hypertension; D64.9 Anemia, unspecified; Z98.890 Other specified postprocedural states; F12.90 Cannabis use, unspecified, uncomplicated; Z87.19 Personal history of other diseases of the digestive system; Z87.09 Personal history of other diseases of the respiratory system; Z68.31 Body mass index [BMI] 31.0-31.9, adult
CPT/HCPCS: J2250; J3010; J7042

== ENCOUNTER 2020-04-27 20:30 | Inpatient (IN) | payer MEDICAID, OTHER ==
[2020-04-27] MEDS ORDERED: Albuterol 0.083% 2.5 MG/3 ML Neb Soln ONE (20:38)
[2020-04-27] MEDS ORDERED: methylPREDNISolone Sodium Succinate 125 MG/2 ML SDV ONE (20:44)
[2020-04-27] MEDS ORDERED: Albuterol/Ipratropium 3.0-0.5 MG/3 ML Neb Soln NEB ONE (21:02)
[2020-04-27] MEDS ORDERED: Albuterol 0.083% 2.5 MG/3 ML Neb Soln NEB ONE (21:04)
[2020-04-27] MEDS ORDERED: methylPREDNISolone Sodium Succinate 125 MG/2 ML SDV IVPUSH ONE (21:04)
[2020-04-27] MEDS ORDERED: Sodium Chloride 0.9% 1,000 ML IV ONE (21:23)
[2020-04-27 21:28] LABS: CHLORIDE,CL 101 mmol/L (98-107); SODIUM,NA 138 mmol/L (136-145)
[2020-04-27] MEDS ORDERED: Magnesium Sulfate/D5W 1 GM/100 ML BAG IV ONE ×2 (21:46→21:47)
--- NOTE | 2020-04-27 21:54 | CR ---
PROCEDURE INFORMATION: Exam: XR Chest, 1 View Exam date and time: 04/27/2020 9:04 PM Age: 54 years old Clinical indication: Chest pain TECHNIQUE: Imaging protocol: XR of the chest Views: 1 view. COMPARISON: No relevant prior studies available. FINDINGS: Lungs: Unremarkable. No consolidation. Pleural space: Unremarkable. No pleural effusion. No pneumothorax. Heart/Mediastinum: Unremarkable. No cardiomegaly. Bones/joints: Unremarkable. IMPRESSION: No acute findings.
--- NOTE | 2020-04-27 22:02 | EDM.PDOC ---
<Cindy Mcghee - Last Filed: 04/28/20 04:16> ED HPI GENERAL MEDICAL PROBLEM - General Chief Complaint: Respiratory Problem Stated Complaint: ASTHEMA ATTACK Time Seen by Provider: 04/27/20 21:00 Source of Information: Reports: Patient, RN, RN Notes Reviewed History Limitations: Reports: No Limitations, Respiratory Distress - History of Present Illness INITIAL COMMENTS - FREE TEXT/NARRATIVE: Patient presents to ER with complaint of shortness of breath which began yesterday, progressively has gotten worse. Patient states he has a history of asthma, uses nebs and inhalers at home. Patient states he is to be worked up for COPD, but has not followed up. Patient denies any known exposure to Covid. States he "smokes a lot of weed". Also states he "also does pills". Patient states he does not have oxygen at home. Onset: Gradual - Related Data Allergies Allergy/AdvReac Type Severity Reaction Status Date / Time codeine AdvReac Nausea and Verified 04/27/20 22:04 Vomiting Home Meds: Home Meds Albuterol [Proventil HFA] 1 puff INH QID PRN 08/16/14 [History] Aspirin [Halfprin] 81 mg PO DAILY 08/16/14 [History] hydroCHLOROthiazide [Hydrochlorothiazide] 50 mg PO DAILY 08/16/14 [History] Levothyroxine Sodium [Euthyrox] 75 mcg PO DAILY 03/21/20 [History] Omeprazole 20 mg PO DAILY 03/21/20 [History] lisinopriL [Lisinopril] 20 mg PO DAILY 03/21/20 [History] Acetaminophen [Acetaminophen Extra Strength] 1,000 mg PO QID PRN 04/18/20 [History] Past Medical History HEENT History: Reports: None Cardiovascular History: Reports: Hypertension Respiratory History: Reports: Asthma Gastrointestinal History: Reports: Chronic Constipation, GERD, GI Bleed, Hepatitis Genitourinary History: Reports: None Musculoskeletal History: Reports: Arthritis, Osteoarthritis Neurological History: Reports: None Psychiatric History: Reports: Anxiety Endocrine/Metabolic History: Reports: Obesity/BMI 30+ Hematologic History: Reports: Anemia, Blood Transfusion(s) Immunologic History: Reports: None Oncologic (Cancer) History: Reports: None Dermatologic History: Reports: Other (See Below) Other Dermatologic History: edema DONTA LE - Infectious Disease History Infectious Disease History: Reports: Hepatitis C - Past Surgical History Head Surgeries/Procedures: Reports: None HEENT Surgical History: Reports: None Cardiovascular Surgical History: Reports: None Respiratory Surgical History: Reports: None GI Surgical History: Reports: EGD Male Surgical History: Reports: None Endocrine Surgical History: Reports: None Neurological Surgical History: Reports: None Musculoskeletal Surgical History: Reports: None Oncologic Surgical History: Reports: None Social & Family History - Family History Family Medical History: Noncontributory - Caffeine Use Caffeine Use: Reports: Coffee, Soda, Tea - Living Situation & Occupation Occupation: Employed ED ROS GENERAL - Review of Systems Review Of Systems: Comprehensive ROS is negative, except as noted in HPI. ED EXAM, GENERAL - Physical Exam Exam: See Below Exam Limited By: Respiratory Distress General Appearance: Alert, WD/WN, Moderate Distress Eye Exam: Bilateral Eye: EOMI, Normal Inspection, PERRL (4, sluggish) Ears: Normal External Exam, Hearing Grossly Normal Nose: Normal Inspection Throat/Mouth: Normal Inspection, Normal Voice, No Airway Compromise Head: Atraumatic, Normocephalic Neck: Normal Inspection, Supple, Non-Tender, Full Range of Motion Respiratory/Chest: Chest Non-Tender, Decreased Breath Sounds, Crackles (throughout), Rhonchi (throughout), Wheezing (throughout), Accessory Muscle Use Cardiovascular: Normal Peripheral Pulses, Regular Rate, Rhythm, No Edema, No Gallop, No JVD, No Murmur, No Rub Peripheral Pulses: 2+: Radial (L), Radial (R) GI/Abdominal: Normal Bowel Sounds, Soft, Non-Tender (Male) Exam: Deferred Rectal (Males) Exam: Deferred Back Exam: Normal Inspection, Full Range of Motion, NT Extremities: Normal Inspection, Normal Range of Motion, Non-Tender, Normal Capillary Refill, No Pedal Edema Neurological: Alert, Oriented, CN II-XII Intact, Normal Cognition, Normal Gait, Normal Reflexes, No Motor/Sensory Deficits Psychiatric: Normal Affect, Normal Mood Skin Exam: Warm, Dry, Intact, Normal Color, No Rash Lymphatic: No Adenopathy Course - Radiology Interpretation Free Text/Narrative:: Chest xray: PROCEDURE INFORMATION: Exam: XR Chest, 1 View Exam date and time: 04/27/2020 9:04 PM Age: 54 years old Clinical indication: Chest pain TECHNIQUE: Imaging protocol: XR of the chest Views: 1 view. COMPARISON: No relevant prior studies available. FINDINGS: Lungs: Unremarkable. No consolidation. Pleural space: Unremarkable. No pleural effusion. No pneumothorax. Heart/Mediastinum: Unremarkable. No cardiomegaly. Bones/joints: Unremarkable. IMPRESSION: No acute findings. Thank you for allowing us to participate in the care of your patient. Dictated and Authenticated by: Diomedes Mccann MD 04/27/2020 9:53 PM Central Time ([place] & [place]) See rad report - Re-Assessments/Exams Free Text/Narrative Re-Assessment/Exam: 04/28/20 02:17 Patient falls asleep easily, but does arouse easily as well. Initial sats on room air 83 to 84%. Albuterol nebulizer started and sats up to 96%. Back to room air after nebulizers patient sats 88 to 89%. Increased to 94% when put on 2 L of nasal cannula. After some time we attempted to turn the oxygen down to 1 L, but sats dropped to 86 to 87%. At one point patient up and ambulated to the bathroom on his own without oxygen, went back to bed patient very winded and oxygen saturation 83%. 04/28/20 04:16 Unable to admit the patient to acute care or observation on the medical floor due to safety concerns, patient versus nurse ratios. Plan to keep the patient on oxygen as needed per sats, Solu-Medrol every 6 hours, DuoNeb every 4 hours, monitor and reassess in the morning. Patient states he is feeling much better. Departure - Departure Disposition: Admitted As Inpatient 64 Clinical Impression: Asthma exacerbation Qualifiers: Asthma severity: moderate Asthma persistence: unspecified Qualified Code(s): J45.901 - Unspecified asthma with (acute) exacerbation - Discharge Information Forms: ED Department Discharge <DanielRuthy - Last Filed: 04/28/20 10:15> Course - Vital Signs Last Recorded V/S: Last Vital Signs Temp 98.5 F 04/28/20 08:45 Pulse 82 04/28/20 08:45 Resp 20 04/28/20 08:45 BP 141/93 H 04/28/20 08:45 Pulse Ox 93 L 04/28/20 08:45 - Orders/Labs/Meds Orders: Active Orders 24 hr Category Date Time Status EKG Documentation Completion [RC] STAT Care 04/27/20 21:03 Active RT Aerosol Therapy [RC] ASDIRECTED Care 04/27/20 21:04 Active RT Aerosol Therapy [RC] ASDIRECTED Care 04/27/20 21:04 Active RT Aerosol Therapy [RC] ASDIRECTED Care 04/28/20 00:03 Active RT Aerosol Therapy [RC] ASDIRECTED Care 04/28/20 02:55 Active RT Aerosol Therapy [RC] ASDIRECTED Care 04/28/20 08:00 Active CULTURE BLOOD [BC] Stat Lab 04/27/20 20:48 Received Sodium Chloride 0.9% [Normal Saline] 1,000 ml Med 04/28/20 01:15 Active IV ASDIRECTED Medication Orders Sodium Chloride (Normal Saline) 1,000 mls @ 150 mls/hr IV ASDIRECTED RIVERA Last Admin: 04/28/20 01:12 Dose: 150 mls/hr Documented by: ADRIANE Labs: Laboratory Tests 04/27/20 04/27/20 04/27/20 Range/Units 20:48 20:48 20:48 WBC 10.8 H (5.0-10.0) 10^3/uL RBC 4.37 L (4.6-6.2) 10^6/uL Hgb 10.1 L D (14.0-18.0) g/dL Hct 33.0 L (40.0-54.0) % MCV 75.5 L D (80-100) fL MCH 23.1 L (27.0-34.0) pg MCHC 30.6 L (33.0-35.0) g/dL Plt Count 442 D (150-450) 10^3/uL Neut % (Auto) 56.3 (42.2-75.2) % Lymph % (Auto) 14.5 L (20.5-50.1) % [place] % (Auto) 12.3 H (2-8) % Eos % (Auto) 15.7 H (1.0-3.0) % Baso % (Auto) 1.2 H (0.0-1.0) % Add Manual Diff Yes Neutrophils % (Manual) 55 (42-75) % Lymphocytes % (Manual) 15 L (20-50) % Monocytes % (Manual) 12 H (2-8) % Eosinophils % (Manual) 18 H (1-3) % D-Dimer, Quantitative 317 (0-400) ng/mL ABG pH (7.35-7.45) ABG pCO2 (35-45) mmHg ABG pO2 (70-100) mmHg ABG HCO3 (22-26) mmol/L ABG O2 Saturation (95-100) % ABG Base Excess ((-2)-(+3)) mmol/L Patricio Test O2 Delivery Device Oxygen Flow Rate Sodium 138 (136-145) mmol/L Potassium 4.0 (3.5-5.1) mmol/L Chloride 101 (98-107) mmol/L Carbon Dioxide 27 (21-32) mmol/L Anion Gap 14.0 H (7-13) mEq/L BUN 8 (7-18) mg/dL Creatinine 1.38 H (0.70-1.30) mg/dL Est Cr Clr Drug Dosing TNP Estimated GFR (MDRD) 53 BUN/Creatinine Ratio 5.8 (No establ ref range) Glucose 116 H (74-99) mg/dL Lactic Acid (0.4-2.0) mmol/L Calcium 9.0 (8.5-10.1) mg/dL Magnesium (1.8-2.4) mg/dL Total Bilirubin 0.4 (0.2-1.0) mg/dL AST 38 H (15-37) U/L ALT 36 (16-63) U/L Alkaline Phosphatase 64 (46-116) U/L Lactate Dehydrogenase 190 (85-227) U/L Troponin I 0.036 (0.000-0.056) ng/mL C-Reactive Protein 3.0 H (0.0-0.9) mg/dL B-Natriuretic Peptide 33 (0-100) pg/ml Total Protein 7.6 (6.4-8.2) g/dL Albumin 3.5 (3.4-5.0) g/dL Globulin 4.1 Albumin/Globulin Ratio 0.9 Urine Color (YELLOW) Urine Appearance (CLEAR) Urine pH (5.0-9.0) Ur Specific [place] (1.005-1.030) Urine Protein (NEGATIVE) Urine Glucose (UA) (NEGATIVE) Urine Ketones (NEGATIVE) Urine Occult Blood (NEGATIVE) Urine Nitrite (NEGATIVE) Urine Bilirubin (NEGATIVE) Urine Urobilinogen (0.2-1.0) mg/dL Ur Leukocyte Esterase (NEGATIVE) Urine RBC /HPF Urine WBC (0-5/HPF) /HPF Ur Epithelial Cells (NOT SEEN) /HPF Amorphous Sediment (NOT SEEN) /HPF Urine Bacteria (0-FEW/HPF) /HPF Urine Opiates Screen (NEGATIVE) Ur Oxycodone Screen (NEGATIVE) Urine Methadone Screen (NEGATIVE) Ur Barbiturates Screen (NEGATIVE) U Tricyclic Antidepress (NEGATIVE) Ur Phencyclidine Scrn (NEGATIVE) Ur Amphetamine Screen (NEGATIVE) U Methamphetamines Scrn (NEGATIVE) Urine MDMA Screen (NEGATIVE) U Benzodiazepines Scrn (NEGATIVE) Urine Cocaine Screen (NEGATIVE) U Marijuana (THC) Screen (NEGATIVE) SARS CoV-2 RNA Rapid RADHA (NEGATIVE) 04/27/20 04/27/20 04/27/20 Range/Units 20:48 20:48 20:48 WBC (5.0-10.0) 10^3/uL RBC (4.6-6.2) 10^6/uL Hgb (14.0-18.0) g/dL Hct (40.0-54.0) % MCV (80-100) fL MCH (27.0-34.0) pg MCHC (33.0-35.0) g/dL Plt Count (150-450) 10^3/uL Neut % (Auto) (42.2-75.2) % Lymph % (Auto) (20.5-50.1) % [place] % (Auto) (2-8) % Eos % (Auto) (1.0-3.0) % Baso % (Auto) (0.0-1.0) % Add Manual Diff Neutrophils % (Manual) (42-75) % Lymphocytes % (Manual) (20-50) % Monocytes % (Manual) (2-8) % Eosinophils % (Manual) (1-3) % D-Dimer, Quantitative (0-400) ng/mL ABG pH (7.35-7.45) ABG pCO2 (35-45) mmHg ABG pO2 (70-100) mmHg ABG HCO3 (22-26) mmol/L ABG O2 Saturation (95-100) % ABG Base Excess ((-2)-(+3)) mmol/L Patricio Test O2 Delivery Device Oxygen Flow Rate Sodium (136-145) mmol/L Potassium (3.5-5.1) mmol/L Chloride (98-107) mmol/L Carbon Dioxide (21-32) mmol/L Anion Gap (7-13) mEq/L BUN (7-18) mg/dL Creatinine (0.70-1.30) mg/dL Est Cr Clr Drug Dosing Estimated GFR (MDRD) BUN/Creatinine Ratio (No establ ref range) Glucose (74-99) mg/dL Lactic Acid 1.0 (0.4-2.0) mmol/L Calcium (8.5-10.1) mg/dL Magnesium 1.7 L (1.8-2.4) mg/dL Total Bilirubin (0.2-1.0) mg/dL AST (15-37) U/L ALT (16-63) U/L Alkaline Phosphatase (46-116) U/L Lactate Dehydrogenase (85-227) U/L Troponin I (0.000-0.056) ng/mL C-Reactive Protein (0.0-0.9) mg/dL B-Natriuretic Peptide (0-100) pg/ml Total Protein (6.4-8.2) g/dL Albumin (3.4-5.0) g/dL Globulin Albumin/Globulin Ratio Urine Color (YELLOW) Urine Appearance (CLEAR) Urine pH (5.0-9.0) Ur Specific [place] (1.005-1.030) Urine Protein (NEGATIVE) Urine Glucose (UA) (NEGATIVE) Urine Ketones (NEGATIVE) Urine Occult Blood (NEGATIVE) Urine Nitrite (NEGATIVE) Urine Bilirubin (NEGATIVE) Urine Urobilinogen (0.2-1.0) mg/dL Ur Leukocyte Esterase (NEGATIVE) Urine RBC /HPF Urine WBC (0-5/HPF) /HPF Ur Epithelial Cells (NOT SEEN) /HPF Amorphous Sediment (NOT SEEN) /HPF Urine Bacteria (0-FEW/HPF) /HPF Urine Opiates Screen (NEGATIVE) Ur Oxycodone Screen (NEGATIVE) Urine Methadone Screen (NEGATIVE) Ur Barbiturates Screen (NEGATIVE) U Tricyclic Antidepress (NEGATIVE) Ur Phencyclidine Scrn (NEGATIVE) Ur Amphetamine Screen (NEGATIVE) U Methamphetamines Scrn (NEGATIVE) Urine MDMA Screen (NEGATIVE) U Benzodiazepines Scrn (NEGATIVE) Urine Cocaine Screen (NEGATIVE) U Marijuana (THC) Screen (NEGATIVE) SARS CoV-2 RNA Rapid RADHA Negative (NEGATIVE) 04/27/20 04/28/20 04/28/20 Range/Units 23:50 00:14 00:14 WBC (5.0-10.0) 10^3/uL RBC (4.6-6.2) 10^6/uL Hgb (14.0-18.0) g/dL Hct (40.0-54.0) % MCV (80-100) fL MCH (27.0-34.0) pg MCHC (33.0-35.0) g/dL Plt Count (150-450) 10^3/uL Neut % (Auto) (42.2-75.2) % Lymph % (Auto) (20.5-50.1) % [place] % (Auto) (2-8) % Eos % (Auto) (1.0-3.0) % Baso % (Auto) (0.0-1.0) % Add Manual Diff Neutrophils % (Manual) (42-75) % Lymphocytes % (Manual) (20-50) % Monocytes % (Manual) (2-8) % Eosinophils % (Manual) (1-3) % D-Dimer, Quantitative (0-400) ng/mL ABG pH 7.41 (7.35-7.45) ABG pCO2 42 (35-45) mmHg ABG pO2 78 (70-100) mmHg ABG HCO3 26.0 (22-26) mmol/L ABG O2 Saturation 96 (95-100) % ABG Base Excess 2 ((-2)-(+3)) mmol/L Patricio Test Lb O2 Delivery Device Nasal cannula Oxygen Flow Rate 1 Sodium (136-145) mmol/L Potassium (3.5-5.1) mmol/L Chloride (98-107) mmol/L Carbon Dioxide (21-32) mmol/L Anion Gap (7-13) mEq/L BUN (7-18) mg/dL Creatinine (0.70-1.30) mg/dL Est Cr Clr Drug Dosing Estimated GFR (MDRD) BUN/Creatinine Ratio (No establ ref range) Glucose (74-99) mg/dL Lactic Acid (0.4-2.0) mmol/L Calcium (8.5-10.1) mg/dL Magnesium (1.8-2.4) mg/dL Total Bilirubin (0.2-1.0) mg/dL AST (15-37) U/L ALT (16-63) U/L Alkaline Phosphatase (46-116) U/L Lactate Dehydrogenase (85-227) U/L Troponin I (0.000-0.056) ng/mL C-Reactive Protein (0.0-0.9) mg/dL B-Natriuretic Peptide (0-100) pg/ml Total Protein (6.4-8.2) g/dL Albumin (3.4-5.0) g/dL Globulin Albumin/Globulin Ratio Urine Color Yellow (YELLOW) Urine Appearance Clear (CLEAR) Urine pH 5.5 (5.0-9.0) Ur Specific [place] 1.020 (1.005-1.030) Urine Protein Negative (NEGATIVE) Urine Glucose (UA) Negative (NEGATIVE) Urine Ketones Negative (NEGATIVE) Urine Occult Blood Negative (NEGATIVE) Urine Nitrite Negative (NEGATIVE) Urine Bilirubin Negative (NEGATIVE) Urine Urobilinogen 0.2 (0.2-1.0) mg/dL Ur Leukocyte Esterase Negative (NEGATIVE) Urine RBC Not seen /HPF Urine WBC 0-5 (0-5/HPF) /HPF Ur Epithelial Cells Rare (NOT SEEN) /HPF Amorphous Sediment Rare (NOT SEEN) /HPF Urine Bacteria Rare (0-FEW/HPF) /HPF Urine Opiates Screen Negative (NEGATIVE) Ur Oxycodone Screen Positive H (NEGATIVE) Urine Methadone Screen Negative (NEGATIVE) Ur Barbiturates Screen Negative (NEGATIVE) U Tricyclic Antidepress Negative (NEGATIVE) Ur Phencyclidine Scrn Negative (NEGATIVE) Ur Amphetamine Screen Negative (NEGATIVE) U Methamphetamines Scrn Negative (NEGATIVE) Urine MDMA Screen Negative (NEGATIVE) U Benzodiazepines Scrn Negative (NEGATIVE) Urine Cocaine Screen Negative (NEGATIVE) U Marijuana (THC) Screen Positive H (NEGATIVE) SARS CoV-2 RNA Rapid RADHA (NEGATIVE) Meds: Medications Generic Name Dose Route Start Last Admin Trade Name Freq PRN Reason Stop Dose Admin Sodium Chloride 1,000 mls @ 150 mls/hr 04/28/20 01:15 04/28/20 01:12 Normal Saline IV 150 mls/hr ASDIRECTED RIVERA Administration Discontinued Medications Generic Name Dose Route Start Last Admin Trade Name Freq PRN Reason Stop Dose Admin Albuterol Confirm 04/27/20 20:38 04/27/20 20:41 Proventil Neb Soln Administered 04/27/20 20:39 2.5 mg Dose Administration 2.5 mg .ROUTE .STK-MED ONE Albuterol 2.5 mg 04/27/20 21:04 04/27/20 21:25 Proventil Neb Soln NEB 04/27/20 21:05 Not Given ONETIME ONE Albuterol/Ipratropium 3 ml 04/27/20 21:02 04/27/20 21:07 Duoneb 3.0-0.5 Mg/3 Ml NEB 04/27/20 21:03 3 ml ONETIME ONE Administration Albuterol/Ipratropium 3 ml 04/28/20 00:03 04/28/20 00:18 Duoneb 3.0-0.5 Mg/3 Ml NEB 04/28/20 00:04 3 ml ONETIME ONE Administration Albuterol/Ipratropium 3 ml 04/28/20 04:00 04/28/20 04:03 Duoneb 3.0-0.5 Mg/3 Ml NEB 04/28/20 04:01 3 ml ONETIME ONE Administration Albuterol/Ipratropium 3 ml 04/28/20 08:00 04/28/20 08:26 Duoneb 3.0-0.5 Mg/3 Ml NEB 04/28/20 08:01 3 ml ONETIME ONE Administration Azithromycin 500 mg 04/27/20 23:10 04/27/20 23:21 Zithromax PO 04/27/20 23:11 500 mg ONETIME ONE Administration Sodium Chloride 1,000 mls @ 999 mls/hr 04/27/20 21:23 04/27/20 21:25 Normal Saline IV 04/27/20 22:23 999 mls/hr .BOLUS ONE Administration Magnesium Sulfate/Dextrose 1 gm in 100 mls @ 100 mls/hr 04/27/20 21:46 04/27/20 21:57 Magnesium Sulfate In D5w 100 Premix IV 04/27/20 22:45 100 mls/hr ONETIME ONE Administration Magnesium Sulfate/Dextrose 1 gm in 100 mls @ 100 mls/hr 04/27/20 21:47 04/27/20 22:43 Magnesium Sulfate In D5w 100 Premix IV 04/27/20 22:46 100 mls/hr ONETIME ONE Administration Methylprednisolone Sodium Succinate Confirm 04/27/20 20:44 04/27/20 20:56 Solu-Medrol Administered 04/27/20 20:45 125 mg Dose Administration 125 mg .ROUTE .STK-MED ONE Methylprednisolone Sodium Succinate 125 mg 04/27/20 21:04 04/27/20 21:25 Solu-Medrol IVPUSH 04/27/20 21:05 Not Given ONETIME ONE Methylprednisolone Sodium Succinate 125 mg 04/28/20 02:54 04/28/20 03:00 Solu-Medrol IVPUSH 04/28/20 02:55 125 mg ONETIME ONE Administration Methylprednisolone Sodium Succinate 125 mg 04/28/20 09:00 04/28/20 08:41 Solu-Medrol IVPUSH 04/28/20 09:01 125 mg ONETIME ONE Administration - Re-Assessments/Exams Free Text/Narrative Re-Assessment/Exam: 04/28/20 0700 Cfo assumed care for patient. Plan for DuoNeb at 0800 and Solu-Medrol at 0900. Will continue to check saturations with ambulation. 04/28/20 10:11 Patient still requiring 1L of O2 via NC to keep oxygen saturations >90. Discussed case with Dr. Morton who agreed to assume his care for inpatient admission. Discussed plan of care with patient who verbalized understanding and agreement with plan of care. Departure - Departure Time of Disposition: 10:15 Condition: Fair Sepsis Event Note (ED) - Focused Exam Vital Signs: Vital Signs Temp Pulse Resp BP Pulse Ox Pulse Ox 04/28/20 08:45 98.5 F 82 20 141/93 H 93 L 04/28/20 08:00 94 96 04/28/20 04:06 98.3 F 69 18 128/86 94 L 04/28/20 03:20 94 L 04/28/20 03:19 97 04/28/20 01:09 98.4 F 75 20 131/75 96 - My Orders Last 24 Hours: My Active Orders 04/28/20 08:00 RT Aerosol Therapy [RC] ASDIRECTED - Assessment/Plan Last 24 Hours: My Active Orders 04/28/20 08:00 RT Aerosol Therapy [RC] ASDIRECTED
[2020-04-27] MEDS ORDERED: Azithromycin 250 MG Tab PO ONE (23:10)
[2020-04-27 23:55] LABS: BASE EXCESS ARTERIAL 2 mmol/L ((-2)-(+3)); O2 DELIVERY DEVICE NASAL CANNULA; O2 SATURATION ARTERIAL 96 % (95-100); PCO2 ARTERIAL 42 mmHg (35-45); PO2 ARTERIAL 78 mmHg (70-100)
[2020-04-27 23:58] LABS: ALLEN TEST LB; O2 FLOW RATE 1
[2020-04-28] MEDS ORDERED: Albuterol/Ipratropium 3.0-0.5 MG/3 ML Neb Soln NEB ONE ×3 (00:03→08:00)
[2020-04-28] MEDS ORDERED: Sodium Chloride 0.9% 1,000 ML IV SCH (01:15)
[2020-04-28] MEDS ORDERED: methylPREDNISolone Sodium Succinate 125 MG/2 ML SDV IVPUSH ONE ×2 (02:54→09:00)
[2020-04-28] MEDS ORDERED: Albuterol/Ipratropium 3.0-0.5 MG/3 ML Neb Soln NEB PRN (11:51)
[2020-04-28] MEDS ORDERED: Docusate Sodium 100 MG Cap PO PRN (11:53)
[2020-04-28] MEDS ORDERED: Ondansetron 4 MG Tab.DIS PO PRN (11:53)
--- NOTE | 2020-04-28 12:00 | PCM.HP ---
H&P History of Present Illness - General Date of Service: 04/28/20 Admit Problem/Dx: Admission Diagnosis/Problem Admission Diagnosis/Problem Asthma attack Source of Information: Patient - History of Present Illness Initial Comments - Free Text/Narative: 54-year-old gentleman with a history of asthma. The patient is also snorting oxycodone and smoking Marihuana, chewing tobacco. presented with Sob, lasting for 2 days. Associated with wheezing. No cough, no chills, no fever. The patient arrived to the emergency room and was noted to have hypoxemia. Was given multiple rounds of nebulizers. Started on steroids, azithromycin was given. - Related Data Allergies/Adverse Reactions: Allergies Allergy/AdvReac Type Severity Reaction Status Date / Time codeine AdvReac Nausea and Verified 04/28/20 11:10 Vomiting Home Medications: Home Meds Albuterol [Proventil HFA] 1 puff INH QID PRN 08/16/14 [History] Aspirin [Halfprin] 81 mg PO DAILY 08/16/14 [History] hydroCHLOROthiazide [Hydrochlorothiazide] 50 mg PO DAILY 08/16/14 [History] Levothyroxine Sodium [Euthyrox] 75 mcg PO DAILY 03/21/20 [History] Omeprazole 20 mg PO DAILY 03/21/20 [History] lisinopriL [Lisinopril] 20 mg PO DAILY 03/21/20 [History] Acetaminophen [Acetaminophen Extra Strength] 1,000 mg PO QID PRN 04/18/20 [History] Past Medical History HEENT History: Reports: None Cardiovascular History: Reports: Hypertension Respiratory History: Reports: Asthma Gastrointestinal History: Reports: Chronic Constipation, GERD, GI Bleed, Hepat itis Genitourinary History: Reports: None Musculoskeletal History: Reports: Arthritis, Osteoarthritis Neurological History: Reports: None Psychiatric History: Reports: Anxiety Endocrine/Metabolic History: Reports: Obesity/BMI 30+ Hematologic History: Reports: Anemia, Blood Transfusion(s) Immunologic History: Reports: None Oncologic (Cancer) History: Reports: None Dermatologic History: Reports: Other (See Below) Other Dermatologic History: edema DONTA LE - Infectious Disease History Infectious Disease History: Reports: Hepatitis C - Past Surgical History Head Surgeries/Procedures: Reports: None HEENT Surgical History: Reports: None Cardiovascular Surgical History: Reports: None Respiratory Surgical History: Reports: None GI Surgical History: Reports: EGD Male Surgical History: Reports: None Endocrine Surgical History: Reports: None Neurological Surgical History: Reports: None Musculoskeletal Surgical History: Reports: None Oncologic Surgical History: Reports: None Social & Family History - Family History Family Medical History: Noncontributory - Tobacco Use Tobacco Use Status *Q: Never Tobacco User Second Hand Smoke Exposure: No - Caffeine Use Caffeine Use: Reports: Coffee, Soda - Recreational Drug Use Recreational Drug Use: Yes Drug Use in Last 12 Months: Yes Recreational Drug Type: Reports: Cocaine, Oxycodone, Other (see below) Other Recreational Drug Type: tramadol - Living Situation & Occupation Occupation: Employed H&P Review of Systems - Review of Systems: Review Of Systems: See Below General: Reports: Malaise. Denies: Fever, Chills Pulmonary: Reports: Shortness of Breath Cardiovascular: Denies: Chest Pain Gastrointestinal: Denies: Abdominal Pain Psychiatric: Denies: Confusion Exam - Exam Exam: See Below - Vital Signs Vital Signs: Last Vital Signs Temp 98.6 F 04/28/20 11:00 Pulse 84 04/28/20 11:00 Resp 18 04/28/20 11:00 BP 152/75 H 04/28/20 11:00 Pulse Ox 93 L 04/28/20 11:00 Weight: 186 lb - Exam Quality Assessment: Supplemental Oxygen General: Alert, Oriented Neck: Supple Lungs: Normal Respiratory Effort, Wheezing Cardiovascular: Regular Rate, Regular Rhythm GI/Abdominal Exam: Normal Bowel Sounds, Soft, Non-Tender Extremities: No: Pedal Edema Neuro Extensive - Mental Status: Alert, Oriented x3, Normal Mood/Affect - Patient Data Lab Results Last 24 hrs: Laboratory Results - last 24 hr 04/27/20 04/27/20 04/27/20 Range/Units 20:48 20:48 20:48 WBC 10.8 H (5.0-10.0) 10^3/uL RBC 4.37 L (4.6-6.2) 10^6/uL Hgb 10.1 L D (14.0-18.0) g/dL Hct 33.0 L (40.0-54.0) % MCV 75.5 L D (80-100) fL MCH 23.1 L (27.0-34.0) pg MCHC 30.6 L (33.0-35.0) g/dL Plt Count 442 D (150-450) 10^3/uL Neut % (Auto) 56.3 (42.2-75.2) % Lymph % (Auto) 14.5 L (20.5-50.1) % Frio % (Auto) 12.3 H (2-8) % Eos % (Auto) 15.7 H (1.0-3.0) % Baso % (Auto) 1.2 H (0.0-1.0) % Add Manual Diff Yes Neutrophils % (Manual) 55 (42-75) % Lymphocytes % (Manual) 15 L (20-50) % Monocytes % (Manual) 12 H (2-8) % Eosinophils % (Manual) 18 H (1-3) % D-Dimer, Quantitative 317 (0-400) ng/mL ABG pH (7.35-7.45) ABG pCO2 (35-45) mmHg ABG pO2 (70-100) mmHg ABG HCO3 (22-26) mmol/L ABG O2 Saturation (95-100) % ABG Base Excess ((-2)-(+3)) mmol/L Patricio Test O2 Delivery Device Oxygen Flow Rate Sodium 138 (136-145) mmol/L Potassium 4.0 (3.5-5.1) mmol/L Chloride 101 (98-107) mmol/L Carbon Dioxide 27 (21-32) mmol/L Anion Gap 14.0 H (7-13) mEq/L BUN 8 (7-18) mg/dL Creatinine 1.38 H (0.70-1.30) mg/dL Est Cr Clr Drug Dosing TNP Estimated GFR (MDRD) 53 BUN/Creatinine Ratio 5.8 (No establ ref range) Glucose 116 H (74-99) mg/dL Lactic Acid (0.4-2.0) mmol/L Calcium 9.0 (8.5-10.1) mg/dL Magnesium (1.8-2.4) mg/dL Total Bilirubin 0.4 (0.2-1.0) mg/dL AST 38 H (15-37) U/L ALT 36 (16-63) U/L Alkaline Phosphatase 64 (46-116) U/L Lactate Dehydrogenase 190 (85-227) U/L Troponin I 0.036 (0.000-0.056) ng/mL C-Reactive Protein 3.0 H (0.0-0.9) mg/dL B-Natriuretic Peptide 33 (0-100) pg/ml Total Protein 7.6 (6.4-8.2) g/dL Albumin 3.5 (3.4-5.0) g/dL Globulin 4.1 Albumin/Globulin Ratio 0.9 Urine Color (YELLOW) Urine Appearance (CLEAR) Urine pH (5.0-9.0) Ur Specific [place] (1.005-1.030) Urine Protein (NEGATIVE) Urine Glucose (UA) (NEGATIVE) Urine Ketones (NEGATIVE) Urine Occult Blood (NEGATIVE) Urine Nitrite (NEGATIVE) Urine Bilirubin (NEGATIVE) Urine Urobilinogen (0.2-1.0) mg/dL Ur Leukocyte Esterase (NEGATIVE) Urine RBC /HPF Urine WBC (0-5/HPF) /HPF Ur Epithelial Cells (NOT SEEN) /HPF Amorphous Sediment (NOT SEEN) /HPF Urine Bacteria (0-FEW/HPF) /HPF Urine Opiates Screen (NEGATIVE) Ur Oxycodone Screen (NEGATIVE) Urine Methadone Screen (NEGATIVE) Ur Barbiturates Screen (NEGATIVE) U Tricyclic Antidepress (NEGATIVE) Ur Phencyclidine Scrn (NEGATIVE) Ur Amphetamine Screen (NEGATIVE) U Methamphetamines Scrn (NEGATIVE) Urine MDMA Screen (NEGATIVE) U Benzodiazepines Scrn (NEGATIVE) Urine Cocaine Screen (NEGATIVE) U Marijuana (THC) Screen (NEGATIVE) SARS CoV-2 RNA Rapid RADHA (NEGATIVE) 04/27/20 04/27/20 04/27/20 Range/Units 20:48 20:48 20:48 WBC (5.0-10.0) 10^3/uL RBC (4.6-6.2) 10^6/uL Hgb (14.0-18.0) g/dL Hct (40.0-54.0) % MCV (80-100) fL MCH (27.0-34.0) pg MCHC (33.0-35.0) g/dL Plt Count (150-450) 10^3/uL Neut % (Auto) (42.2-75.2) % Lymph % (Auto) (20.5-50.1) % Frio % (Auto) (2-8) % Eos % (Auto) (1.0-3.0) % Baso % (Auto) (0.0-1.0) % Add Manual Diff Neutrophils % (Manual) (42-75) % Lymphocytes % (Manual) (20-50) % Monocytes % (Manual) (2-8) % Eosinophils % (Manual) (1-3) % D-Dimer, Quantitative (0-400) ng/mL ABG pH (7.35-7.45) ABG pCO2 (35-45) mmHg ABG pO2 (70-100) mmHg ABG HCO3 (22-26) mmol/L ABG O2 Saturation (95-100) % ABG Base Excess ((-2)-(+3)) mmol/L Patricio Test O2 Delivery Device Oxygen Flow Rate Sodium (136-145) mmol/L Potassium (3.5-5.1) mmol/L Chloride (98-107) mmol/L Carbon Dioxide (21-32) mmol/L Anion Gap (7-13) mEq/L BUN (7-18) mg/dL Creatinine (0.70-1.30) mg/dL Est Cr Clr Drug Dosing Estimated GFR (MDRD) BUN/Creatinine Ratio (No establ ref range) Glucose (74-99) mg/dL Lactic Acid 1.0 (0.4-2.0) mmol/L Calcium (8.5-10.1) mg/dL Magnesium 1.7 L (1.8-2.4) mg/dL Total Bilirubin (0.2-1.0) mg/dL AST (15-37) U/L ALT (16-63) U/L Alkaline Phosphatase (46-116) U/L Lactate Dehydrogenase (85-227) U/L Troponin I (0.000-0.056) ng/mL C-Reactive Protein (0.0-0.9) mg/dL B-Natriuretic Peptide (0-100) pg/ml Total Protein (6.4-8.2) g/dL Albumin (3.4-5.0) g/dL Globulin Albumin/Globulin Ratio Urine Color (YELLOW) Urine Appearance (CLEAR) Urine pH (5.0-9.0) Ur Specific [place] (1.005-1.030) Urine Protein (NEGATIVE) Urine Glucose (UA) (NEGATIVE) Urine Ketones (NEGATIVE) Urine Occult Blood (NEGATIVE) Urine Nitrite (NEGATIVE) Urine Bilirubin (NEGATIVE) Urine Urobilinogen (0.2-1.0) mg/dL Ur Leukocyte Esterase (NEGATIVE) Urine RBC /HPF Urine WBC (0-5/HPF) /HPF Ur Epithelial Cells (NOT SEEN) /HPF Amorphous Sediment (NOT SEEN) /HPF Urine Bacteria (0-FEW/HPF) /HPF Urine Opiates Screen (NEGATIVE) Ur Oxycodone Screen (NEGATIVE) Urine Methadone Screen (NEGATIVE) Ur Barbiturates Screen (NEGATIVE) U Tricyclic Antidepress (NEGATIVE) Ur Phencyclidine Scrn (NEGATIVE) Ur Amphetamine Screen (NEGATIVE) U Methamphetamines Scrn (NEGATIVE) Urine MDMA Screen (NEGATIVE) U Benzodiazepines Scrn (NEGATIVE) Urine Cocaine Screen (NEGATIVE) U Marijuana (THC) Screen (NEGATIVE) SARS CoV-2 RNA Rapid RADHA Negative (NEGATIVE) 04/27/20 04/28/20 04/28/20 Range/Units 23:50 00:14 00:14 WBC (5.0-10.0) 10^3/uL RBC (4.6-6.2) 10^6/uL Hgb (14.0-18.0) g/dL Hct (40.0-54.0) % MCV (80-100) fL MCH (27.0-34.0) pg MCHC (33.0-35.0) g/dL Plt Count (150-450) 10^3/uL Neut % (Auto) (42.2-75.2) % Lymph % (Auto) (20.5-50.1) % Frio % (Auto) (2-8) % Eos % (Auto) (1.0-3.0) % Baso % (Auto) (0.0-1.0) % Add Manual Diff Neutrophils % (Manual) (42-75) % Lymphocytes % (Manual) (20-50) % Monocytes % (Manual) (2-8) % Eosinophils % (Manual) (1-3) % D-Dimer, Quantitative (0-400) ng/mL ABG pH 7.41 (7.35-7.45) ABG pCO2 42 (35-45) mmHg ABG pO2 78 (70-100) mmHg ABG HCO3 26.0 (22-26) mmol/L ABG O2 Saturation 96 (95-100) % ABG Base Excess 2 ((-2)-(+3)) mmol/L Patricio Test Lb O2 Delivery Device Nasal cannula Oxygen Flow Rate 1 Sodium (136-145) mmol/L Potassium (3.5-5.1) mmol/L Chloride (98-107) mmol/L Carbon Dioxide (21-32) mmol/L Anion Gap (7-13) mEq/L BUN (7-18) mg/dL Creatinine (0.70-1.30) mg/dL Est Cr Clr Drug Dosing Estimated GFR (MDRD) BUN/Creatinine Ratio (No establ ref range) Glucose (74-99) mg/dL Lactic Acid (0.4-2.0) mmol/L Calcium (8.5-10.1) mg/dL Magnesium (1.8-2.4) mg/dL Total Bilirubin (0.2-1.0) mg/dL AST (15-37) U/L ALT (16-63) U/L Alkaline Phosphatase (46-116) U/L Lactate Dehydrogenase (85-227) U/L Troponin I (0.000-0.056) ng/mL C-Reactive Protein (0.0-0.9) mg/dL B-Natriuretic Peptide (0-100) pg/ml Total Protein (6.4-8.2) g/dL Albumin (3.4-5.0) g/dL Globulin Albumin/Globulin Ratio Urine Color Yellow (YELLOW) Urine Appearance Clear (CLEAR) Urine pH 5.5 (5.0-9.0) Ur Specific [place] 1.020 (1.005-1.030) Urine Protein Negative (NEGATIVE) Urine Glucose (UA) Negative (NEGATIVE) Urine Ketones Negative (NEGATIVE) Urine Occult Blood Negative (NEGATIVE) Urine Nitrite Negative (NEGATIVE) Urine Bilirubin Negative (NEGATIVE) Urine Urobilinogen 0.2 (0.2-1.0) mg/dL Ur Leukocyte Esterase Negative (NEGATIVE) Urine RBC Not seen /HPF Urine WBC 0-5 (0-5/HPF) /HPF Ur Epithelial Cells Rare (NOT SEEN) /HPF Amorphous Sediment Rare (NOT SEEN) /HPF Urine Bacteria Rare (0-FEW/HPF) /HPF Urine Opiates Screen Negative (NEGATIVE) Ur Oxycodone Screen Positive H (NEGATIVE) Urine Methadone Screen Negative (NEGATIVE) Ur Barbiturates Screen Negative (NEGATIVE) U Tricyclic Antidepress Negative (NEGATIVE) Ur Phencyclidine Scrn Negative (NEGATIVE) Ur Amphetamine Screen Negative (NEGATIVE) U Methamphetamines Scrn Negative (NEGATIVE) Urine MDMA Screen Negative (NEGATIVE) U Benzodiazepines Scrn Negative (NEGATIVE) Urine Cocaine Screen Negative (NEGATIVE) U Marijuana (THC) Screen Positive H (NEGATIVE) SARS CoV-2 RNA Rapid RADHA (NEGATIVE) Result Diagrams: 04/27/20 20:48 04/27/20 20:48 - Problem List (1) Hypothyroid SNOMED Code(s): 86475274 ICD Code: E03.9 - HYPOTHYROIDISM, UNSPECIFIED Status: Acute Current Visit: Yes (2) GERD (gastroesophageal reflux disease) SNOMED Code(s): 149417751 ICD Code: K21.9 - GASTRO-ESOPHAGEAL REFLUX DISEASE WITHOUT ESOPHAGITIS Status: Acute Current Visit: Yes (3) Anxiety disorder SNOMED Code(s): 729161075 ICD Code: F41.9 - ANXIETY DISORDER, UNSPECIFIED Status: Acute Current Visit: No Qualifiers: Anxiety disorder type: generalized anxiety disorder Qualified Code(s): F41.1 - Generalized anxiety disorder (4) Asthma exacerbation SNOMED Code(s): 081414253 ICD Code: J45.901 - UNSPECIFIED ASTHMA WITH (ACUTE) EXACERBATION Status: Acute Current Visit: No Qualifiers: Asthma severity: moderate Asthma persistence: unspecified Qualified Code(s): J45.901 - Unspecified asthma with (acute) exacerbation Problem List Initiated/Reviewed/Updated: Yes Orders Last 24hrs: Active Orders 24 hr Category Date Time Status Admission Diagnosis [ADT] Stat ADT 04/28/20 10:13 Ordered Admission Status [Patient Status] [ADT] Routine ADT 04/28/20 10:13 Active Antiembolic Devices [RC] PER UNIT ROUTINE Care 04/28/20 11:55 Ordered Oxygen Therapy [RC] PRN Care 04/28/20 11:53 Ordered Peripheral IV Care [RC] . DIRECTED Care 04/28/20 11:55 Ordered RT Aerosol Therapy [RC] ASDIRECTED Care 04/28/20 11:51 Ordered Up With Assistance [RC] ASDIRECTED Care 04/28/20 11:53 Ordered VTE/DVT Education [RC] PER UNIT ROUTINE Care 04/28/20 11:53 Ordered Vital Signs [RC] Q4H Care 04/28/20 11:53 Ordered Regular Diet [DIET] Diet 04/28/20 Lunch Ordered BASIC METABOLIC PANEL,BMP [CHEM] AM Lab 04/29/20 05:11 Ordered CBC WITH AUTO DIFF [HEME] AM Lab 04/29/20 05:11 Ordered CULTURE BLOOD [BC] Stat Lab 04/27/20 20:48 Received Acetaminophen [TylenoL] Med 04/28/20 11:53 Ordered 650 mg PO Q4H PRN Albuterol/Ipratropium [DuoNeb 3.0-0.5 MG/3 ML] Med 04/28/20 13:00 Ordered 3 ml NEB Q6HRRT Albuterol/Ipratropium [DuoNeb 3.0-0.5 MG/3 ML] Med 04/28/20 11:51 Ordered 3 ml NEB Q6HRRT PRN Aspirin [Halfprin] Med 04/29/20 09:00 Ordered 81 mg PO DAILY Docusate Sodium [Colace] Med 04/28/20 11:53 Ordered 100 mg PO BID PRN Enoxaparin [Lovenox] Med 04/28/20 12:00 Ordered 40 mg SUBCUT DAILY Levothyroxine Med 04/29/20 09:00 Ordered 75 mcg PO DAILY Omeprazole [Omeprazole] Med 04/28/20 12:00 Ordered 20 mg PO DAILY Ondansetron [Zofran ODT] Med 04/28/20 11:53 Ordered 4 mg PO Q6H PRN Sodium Chloride 0.9% [Saline Flush] Med 04/28/20 11:53 Ordered 10 ml FLUSH ASDIRECTED PRN Temazepam [Restoril] Med 04/28/20 11:53 Ordered 15 mg PO BEDTIME PRN hydroCHLOROthiazide [Hydrochlorothiazide] Med 04/29/20 09:00 Ordered 50 mg PO DAILY lisinopriL [Prinivil] Med 04/28/20 12:00 Ordered 20 mg PO DAILY methylPREDNISolone Sod Succ [Solu-MEDROL] Med 04/28/20 12:00 Ordered 40 mg IVPUSH Q8H Antiembolic Hose [OM.PC] Per Unit Routine Oth 04/28/20 11:54 Ordered Peripheral IV Insertion Adult [OM.PC] Routine Oth 04/28/20 11:53 Ordered Saline Lock Insert [OM.PC] Routine Oth 04/28/20 11:53 Ordered Resuscitation Status Routine Resus Stat 04/28/20 11:53 Ordered Medication Orders Acetaminophen (Tylenol) 650 mg PO Q4H PRN PRN Reason: Pain (Mild 1-3)/fever Albuterol/Ipratropium (Duoneb 3.0-0.5 Mg/3 Ml) 3 ml NEB Q6HRRT [facility] Albuterol/Ipratropium (Duoneb 3.0-0.5 Mg/3 Ml) 3 ml NEB Q6HRRT PRN PRN Reason: sob Aspirin (Halfprin) 81 mg PO DAILY [facility] Docusate Sodium (Colace) 100 mg PO BID PRN PRN Reason: Constipation Enoxaparin Sodium (Lovenox) 40 mg SUBCUT DAILY [facility] Levothyroxine Sodium (Levothyroxine) 75 mcg PO DAILY [facility] Lisinopril (Prinivil) 20 mg PO DAILY [facility] Methylprednisolone Sodium Succinate (Solu-Medrol) 40 mg IVPUSH Q8H [facility] Non-Formulary Medication (Hydrochlorothiazide [Hydrochlorothiazide]) 50 mg PO DAILY [facility] Non-Formulary Medication (Omeprazole [Omeprazole]) 20 mg PO DAILY [facility] Ondansetron HCl (Zofran Odt) 4 mg PO Q6H PRN PRN Reason: nausea, able to take PO Sodium Chloride (Saline Flush) 10 ml FLUSH ASDIRECTED PRN PRN Reason: Keep Vein Open Temazepam (Restoril) 15 mg PO BEDTIME PRN PRN Reason: Sleep Assessment/Plan Comment:: 54 years old presented with shortness of breath. The patient has a history of asthma. He is also snorting narcotics. Smoking marijuana. Acute asthma exacerbation Treat with systemic steroids Use DuoNeb as scheduled and as needed Acute hypoxemic respiratory failure Supplement oxygen as needed History of narcotic abuse, anxiety Monitor for withdrawal Use Ativan as needed Hypertension Treat with hydrochlorothiazide, lisinopril Hypothyroidism Treat with Synthroid GERD/h/o GI bleed Cont PPI DVT prophylaxis with subcutaneous Lovenox
[2020-04-28] MEDS: Albuterol/Ipratropium 3.0-0.5 MG/3 ML Neb Soln NEB SCH ×2 (13:02→17:53)
[2020-04-28] MEDS: methylPREDNISolone Sodium Succinate 40 MG/1 ML SDV IVPUSH SCH ×3 (13:16→21:42)
[2020-04-28] MEDS: Lisinopril 20 MG Tab PO SCH (13:19)
[2020-04-28] MEDS: Omeprazole 20 MG Cap.CR PO SCH (13:19)
[2020-04-28] MEDS: Enoxaparin 40 MG/0.4 ML Syringe SUBCUT SCH (13:20)
[2020-04-28] MEDS: Nicotine 14 MG/24 Hr Patch TRDERM SCH (19:47)
[2020-04-28] MEDS ORDERED: Temazepam 15 MG Cap PO PRN (21:00)
[2020-04-28] MEDS: Acetaminophen 325 MG Tab PO PRN (21:37)
[2020-04-28] MEDS: Sodium Chloride 0.9% 10 ML Syringe FLUSH PRN (21:43)
[2020-04-29] MEDS: Albuterol/Ipratropium 3.0-0.5 MG/3 ML Neb Soln NEB SCH ×4 (00:43→18:17)
[2020-04-29] MEDS: methylPREDNISolone Sodium Succinate 40 MG/1 ML SDV IVPUSH SCH ×3 (05:46→21:18)
[2020-04-29] MEDS: Omeprazole 20 MG Cap.CR PO SCH (05:46)
[2020-04-29] MEDS: Sodium Chloride 0.9% 10 ML Syringe FLUSH PRN ×2 (05:48→13:57)
[2020-04-29] MEDS: Acetaminophen 325 MG Tab PO PRN (06:16)
[2020-04-29 07:13] LABS: ANION GAP 14.8 mEq/L (7-13); CHLORIDE,CL 101 mmol/L (98-107); SODIUM,NA 137 mmol/L (136-145)
[2020-04-29] MEDS: Aspirin 81 MG Tab.EC PO SCH (08:16)
[2020-04-29] MEDS: Hydrochlorothiazide 25 MG Tab PO SCH (08:16)
[2020-04-29] MEDS: Levothyroxine 75 MCG Tab PO SCH (08:16)
[2020-04-29] MEDS: Lisinopril 20 MG Tab PO SCH (08:16)
[2020-04-29] MEDS: Nicotine 14 MG/24 Hr Patch TRDERM SCH (08:17)
[2020-04-29] MEDS: Enoxaparin 40 MG/0.4 ML Syringe SUBCUT SCH (08:17)
--- NOTE | 2020-04-29 11:28 | PCM.PN ---
- General Info Date of Service: 04/29/20 Admission Dx/Problem (Free Text): Admission Diagnosis/Problem Admission Diagnosis/Problem Asthma attack Subjective Update: shortness of breath is better but still present. no associated chest pain. Does have cough. Sputum production. No abnormal pain, no diarrhea. Functional Status: Reports: Tolerating Diet - Review of Systems General: Denies: Fever Pulmonary: Reports: Shortness of Breath Cardiovascular: Denies: Chest Pain, Edema Genitourinary: Denies: Dysuria Neurological: Denies: Confusion - Patient Data Vitals - Most Recent: Last Vital Signs Temp 98.6 F 04/29/20 08:11 Pulse 83 04/29/20 08:11 Resp 20 04/29/20 08:11 BP 146/80 H 04/29/20 08:16 Pulse Ox 98 04/29/20 08:11 Weight - Most Recent: 186 lb I&O - Last 24 Hours: Intake & Output 04/28/20 04/29/20 04/29/20 22:59 06:59 14:59 Intake Total 325 Balance 325 Lab Results Last 24 Hours: Laboratory Results - last 24 hr 04/29/20 04/29/20 Range/Units 05:05 05:05 WBC 11.6 H (5.0-10.0) 10^3/uL RBC 4.00 L (4.6-6.2) 10^6/uL Hgb 9.2 L (14.0-18.0) g/dL Hct 29.5 L (40.0-54.0) % MCV 73.8 L (80-100) fL MCH 23.0 L (27.0-34.0) pg MCHC 31.2 L (33.0-35.0) g/dL Plt Count 437 (150-450) 10^3/uL Neut % (Auto) 81.8 H (42.2-75.2) % Lymph % (Auto) 7.0 L (20.5-50.1) % [place] % (Auto) 11.1 H (2-8) % Eos % (Auto) 0.0 L (1.0-3.0) % Baso % (Auto) 0.1 (0.0-1.0) % Sodium 137 (136-145) mmol/L Potassium 3.8 (3.5-5.1) mmol/L Chloride 101 (98-107) mmol/L Carbon Dioxide 25 (21-32) mmol/L Anion Gap 14.8 H (7-13) mEq/L BUN 18 (7-18) mg/dL Creatinine 1.10 (0.70-1.30) mg/dL Est Cr Clr Drug Dosing 67.67 mL/min Estimated GFR (MDRD) > 60 Glucose 124 H (74-99) mg/dL Calcium 8.9 (8.5-10.1) mg/dL Curtis Results Last 24 Hours: Microbiology 04/27/20 20:48 Aerobic Blood Culture - Preliminary Blood - Arm, Left NO GROWTH AFTER 1 DAY Anaerobic Blood Culture - Preliminary NO GROWTH AFTER 1 DAY Med Orders - Current: Current Medications Acetaminophen (Tylenol) 650 mg PO Q4H PRN PRN Reason: Pain (Mild 1-3)/fever Last Admin: 04/29/20 06:16 Dose: 650 mg Documented by: Albuterol/Ipratropium (Duoneb 3.0-0.5 Mg/3 Ml) 3 ml NEB Q6HRRT [facility] Last Admin: 04/29/20 07:47 Dose: 3 ml Documented by: Albuterol/Ipratropium (Duoneb 3.0-0.5 Mg/3 Ml) 3 ml NEB Q6HRRT PRN PRN Reason: sob Aspirin (Halfprin) 81 mg PO DAILY [facility] Last Admin: 04/29/20 08:16 Dose: 81 mg Documented by: Docusate Sodium (Colace) 100 mg PO BID PRN PRN Reason: Constipation Enoxaparin Sodium (Lovenox) 40 mg SUBCUT DAILY [facility] Last Admin: 04/29/20 08:17 Dose: 40 mg Documented by: Hydrochlorothiazide (Hydrochlorothiazide) 50 mg PO DAILY [facility] Last Admin: 04/29/20 08:16 Dose: 50 mg Documented by: Levothyroxine Sodium (Levothyroxine) 75 mcg PO DAILY@0800 [facility] Last Admin: 04/29/20 08:16 Dose: 75 mcg Documented by: Lisinopril (Prinivil) 20 mg PO DAILY [facility] Last Admin: 04/29/20 08:16 Dose: 20 mg Documented by: Lorazepam (Ativan) 1 mg PO Q6HR PRN PRN Reason: Anxiety Methylprednisolone Sodium Succinate (Solu-Medrol) 40 mg IVPUSH Q8HR [facility] Last Admin: 04/29/20 05:46 Dose: 40 mg Documented by: Miscellaneous Information (Check Patch) 1 ea TRDERM BEDTIME [facility] Last Admin: 04/28/20 21:40 Dose: 1 ea Documented by: Nicotine (Habitrol) 14 mg TRDERM DAILY [facility] Last Admin: 04/29/20 08:17 Dose: 14 mg Documented by: Omeprazole (Omeprazole) 20 mg PO ACBREAKFAST [facility] Last Admin: 04/29/20 05:46 Dose: 20 mg Documented by: Ondansetron HCl (Zofran Odt) 4 mg PO Q6HR PRN PRN Reason: nausea, able to take PO Sodium Chloride (Saline Flush) 10 ml FLUSH ASDIRECTED PRN PRN Reason: Keep Vein Open Last Admin: 04/29/20 05:48 Dose: 10 ml Documented by: Temazepam (Restoril) 15 mg PO BEDTIME PRN PRN Reason: Sleep Discontinued Medications Albuterol (Proventil Neb Soln) Confirm Administered Dose 2.5 mg .ROUTE .STK-MED ONE Stop: 04/27/20 20:39 Last Admin: 04/27/20 20:41 Dose: 2.5 mg Documented by: Albuterol (Proventil Neb Soln) 2.5 mg NEB ONETIME ONE Stop: 04/27/20 21:05 Last Admin: 04/27/20 21:25 Dose: Not Given Documented by: Albuterol/Ipratropium (Duoneb 3.0-0.5 Mg/3 Ml) 3 ml NEB ONETIME ONE Stop: 04/27/20 21:03 Last Admin: 04/27/20 21:07 Dose: 3 ml Documented by: Albuterol/Ipratropium (Duoneb 3.0-0.5 Mg/3 Ml) 3 ml NEB ONETIME ONE Stop: 04/28/20 00:04 Last Admin: 04/28/20 00:18 Dose: 3 ml Documented by: Albuterol/Ipratropium (Duoneb 3.0-0.5 Mg/3 Ml) 3 ml NEB ONETIME ONE Stop: 04/28/20 04:01 Last Admin: 04/28/20 04:03 Dose: 3 ml Documented by: Albuterol/Ipratropium (Duoneb 3.0-0.5 Mg/3 Ml) 3 ml NEB ONETIME ONE Stop: 04/28/20 08:01 Last Admin: 04/28/20 08:26 Dose: 3 ml Documented by: Azithromycin (Zithromax) 500 mg PO ONETIME ONE Stop: 04/27/20 23:11 Last Admin: 04/27/20 23:21 Dose: 500 mg Documented by: Sodium Chloride (Normal Saline) 1,000 mls @ 999 mls/hr IV .BOLUS ONE Stop: 04/27/20 22:23 Last Admin: 04/27/20 21:25 Dose: 999 mls/hr Documented by: Magnesium Sulfate/Dextrose (Magnesium Sulfate In D5w 100 Premix) 1 gm in 100 mls @ 100 mls/hr IV ONETIME ONE Stop: 04/27/20 22:45 Last Admin: 04/27/20 21:57 Dose: 100 mls/hr Documented by: Magnesium Sulfate/Dextrose (Magnesium Sulfate In D5w 100 Premix) 1 gm in 100 mls @ 100 mls/hr IV ONETIME ONE Stop: 04/27/20 22:46 Last Admin: 04/27/20 22:43 Dose: 100 mls/hr Documented by: Sodium Chloride (Normal Saline) 1,000 mls @ 150 mls/hr IV ASDIRECTED [facility] Last Admin: 04/28/20 01:12 Dose: 150 mls/hr Documented by: Methylprednisolone Sodium Succinate (Solu-Medrol) Confirm Administered Dose 125 mg .ROUTE .STK-MED ONE Stop: 04/27/20 20:45 Last Admin: 04/27/20 20:56 Dose: 125 mg Documented by: Methylprednisolone Sodium Succinate (Solu-Medrol) 125 mg IVPUSH ONETIME ONE Stop: 04/27/20 21:05 Last Admin: 04/27/20 21:25 Dose: Not Given Documented by: Methylprednisolone Sodium Succinate (Solu-Medrol) 125 mg IVPUSH ONETIME ONE Stop: 04/28/20 02:55 Last Admin: 04/28/20 03:00 Dose: 125 mg Documented by: Methylprednisolone Sodium Succinate (Solu-Medrol) 125 mg IVPUSH ONETIME ONE Stop: 04/28/20 09:01 Last Admin: 04/28/20 08:41 Dose: 125 mg Documented by: - Exam Quality Assessment: Supplemental Oxygen General: Alert, Oriented Neck: Supple Lungs: Wheezing Cardiovascular: Regular Rate, Regular Rhythm GI/Abdominal Exam: Normal Bowel Sounds, Soft, Non-Tender Extremities: No Pedal Edema Sepsis Event Note - Evaluation Sepsis Screening Result: No Definite Risk - Focused Exam Vital Signs: Vital Signs Temp Pulse Resp BP BP BP Pulse Ox 04/29/20 08:16 146/80 H 04/29/20 08:11 98.6 F 83 20 146/80 H 98 04/29/20 07:47 73 04/29/20 04:00 99.2 F 101 H 16 157/88 H 95 04/29/20 00:00 99.3 F 86 18 141/82 H 95 Pulse Ox 04/29/20 08:16 04/29/20 08:11 04/29/20 07:47 94 L 04/29/20 04:00 04/29/20 00:00 - Problem List & Annotations (1) Hypothyroid SNOMED Code(s): 84864388 Code(s): E03.9 - HYPOTHYROIDISM, UNSPECIFIED Status: Acute Current Visit: Yes (2) GERD (gastroesophageal reflux disease) SNOMED Code(s): 102232969 Code(s): K21.9 - GASTRO-ESOPHAGEAL REFLUX DISEASE WITHOUT ESOPHAGITIS Status: Acute Current Visit: Yes (3) Anxiety disorder SNOMED Code(s): 844880267 Code(s): F41.9 - ANXIETY DISORDER, UNSPECIFIED Status: Acute Current Vis it: No Qualifiers: Anxiety disorder type: generalized anxiety disorder Qualified Code(s): F41.1 - Generalized anxiety disorder (4) Asthma exacerbation SNOMED Code(s): 834651142 Code(s): J45.901 - UNSPECIFIED ASTHMA WITH (ACUTE) EXACERBATION Status: Acute Current Visit: No Qualifiers: Asthma severity: moderate Asthma persistence: unspecified Qualified Code(s): J45.901 - Unspecified asthma with (acute) exacerbation - Problem List Review Problem List Initiated/Reviewed/Updated: Yes - My Orders Last 24 Hours: My Active Orders 04/28/20 11:51 RT Aerosol Therapy [RC] ASDIRECTED Albuterol/Ipratropium [DuoNeb 3.0-0.5 MG/3 ML] 3 ml NEB Q6HRRT PRN 04/28/20 11:53 Oxygen Therapy [RC] PRN Up With Assistance [RC] ASDIRECTED VTE/DVT Education [RC] PER UNIT ROUTINE Vital Signs [RC] 00,04,08,12,16,20 Acetaminophen [TylenoL] 650 mg PO Q4H PRN Docusate Sodium [Colace] 100 mg PO BID PRN Ondansetron [Zofran ODT] 4 mg PO Q6HR PRN Sodium Chloride 0.9% [Saline Flush] 10 ml FLUSH ASDIRECTED PRN Peripheral IV Insertion Adult [OM.PC] Routine Saline Lock Insert [OM.PC] Routine Resuscitation Status Routine 04/28/20 11:54 Antiembolic Hose [OM.PC] Per Unit Routine 04/28/20 11:55 Antiembolic Devices [RC] Peripheral IV Care [RC] 06,,04/28/20 Lunch Regular Diet [DIET] Enoxaparin [Lovenox] 40 mg SUBCUT DAILY Omeprazole 20 mg PO ACBREAKFAST lisinopriL [Prinivil] 20 mg PO DAILY methylPREDNISolone Sod Succ [Solu-MEDROL] 40 mg IVPUSH Q8HR 04/28/20 12:17 LORazepam [Ativan] 1 mg PO Q6HR PRN 04/28/20 12:30 Nicotine [Habitrol] 14 mg TRDERM DAILY 04/28/20 13:00 Albuterol/Ipratropium [DuoNeb 3.0-0.5 MG/3 ML] 3 ml NEB Q6HRRT 04/28/20 14:00 Seizure Precautions [OM.PC] Stat 04/28/20 21:00 Check Patch 1 ea TRDERM BEDTIME Temazepam [Restoril] 15 mg PO BEDTIME PRN 04/29/20 08:00 Levothyroxine 75 mcg PO DAILY@0800 04/29/20 09:00 Aspirin [Halfprin] 81 mg PO DAILY hydroCHLOROthiazide 50 mg PO DAILY - Plan Plan:: 54 years old presented with shortness of breath. The patient has a history of asthma. He is also snorting narcotics. Smoking marijuana. Acute asthma exacerbation Treat with systemic steroids - will not start tapering yet Use DuoNeb as scheduled and as needed Acute hypoxemic respiratory failure Supplement oxygen as needed taper as possible History of narcotic abuse, anxiety Monitor for withdrawal Use Ativan as needed Hypertension Treat with hydrochlorothiazide, lisinopril Hypothyroidism Treat with Synthroid GERD/h/o GI bleed Cont PPI DVT prophylaxis with subcutaneous Lovenox
[2020-04-29] MEDS: LORazepam 1 MG Tab PO PRN ×2 (12:10→21:20)
[2020-04-30] MEDS: Albuterol/Ipratropium 3.0-0.5 MG/3 ML Neb Soln NEB SCH ×3 (01:53→14:18)
[2020-04-30] MEDS: Omeprazole 20 MG Cap.CR PO SCH ×2 (04:49→05:54)
[2020-04-30] MEDS: methylPREDNISolone Sodium Succinate 40 MG/1 ML SDV IVPUSH SCH (05:53)
[2020-04-30 06:57] LABS: ANION GAP 13.8 mEq/L (7-13); CHLORIDE,CL 101 mmol/L (98-107); SODIUM,NA 138 mmol/L (136-145)
[2020-04-30 08:24] VITALS: BP 117/60; PULSE 68
[2020-04-30] MEDS: Lisinopril 20 MG Tab PO SCH (09:50)
[2020-04-30] MEDS: Aspirin 81 MG Tab.EC PO SCH (09:50)
[2020-04-30] MEDS: Levothyroxine 75 MCG Tab PO SCH (09:50)
[2020-04-30] MEDS: Hydrochlorothiazide 25 MG Tab PO SCH (09:50)
[2020-04-30] MEDS: Enoxaparin 40 MG/0.4 ML Syringe SUBCUT SCH (09:58)
[2020-04-30] MEDS: Nicotine 14 MG/24 Hr Patch TRDERM SCH (10:00)
--- NOTE | 2020-04-30 10:15 | PCM.PN ---
- General Info Date of Service: 04/30/20 Admission Dx/Problem (Free Text): Admission Diagnosis/Problem Admission Diagnosis/Problem Asthma attack Subjective Update: shortness of breath is better. no associated chest pain. improved cough. Sputum production. No abnormal pain, no diarrhea. - Patient Data Vitals - Most Recent: Last Vital Signs Temp 98.3 F 04/30/20 08:23 Pulse 68 04/30/20 08:23 Resp 20 04/30/20 08:23 BP 117/60 04/30/20 09:50 Pulse Ox 94 L 04/30/20 08:23 Weight - Most Recent: 186 lb I&O - Last 24 Hours: Intake & Output 04/29/20 04/30/20 04/30/20 22:59 06:59 14:59 Intake Total 300 Balance 300 Lab Results Last 24 Hours: Laboratory Results - last 24 hr 04/30/20 04/30/20 Range/Units 05:13 05:13 WBC 12.4 H (5.0-10.0) 10^3/uL RBC 4.27 L (4.6-6.2) 10^6/uL Hgb 9.9 L (14.0-18.0) g/dL Hct 31.3 L (40.0-54.0) % MCV 73.3 L (80-100) fL MCH 23.2 L (27.0-34.0) pg MCHC 31.6 L (33.0-35.0) g/dL Plt Count 441 (150-450) 10^3/uL Neut % (Auto) 81.1 H (42.2-75.2) % Lymph % (Auto) 7.8 L (20.5-50.1) % [place] % (Auto) 10.9 H (2-8) % Eos % (Auto) 0.0 L (1.0-3.0) % Baso % (Auto) 0.2 (0.0-1.0) % Sodium 138 (136-145) mmol/L Potassium 3.8 (3.5-5.1) mmol/L Chloride 101 (98-107) mmol/L Carbon Dioxide 27 (21-32) mmol/L Anion Gap 13.8 H (7-13) mEq/L BUN 25 H (7-18) mg/dL Creatinine 1.23 (0.70-1.30) mg/dL Est Cr Clr Drug Dosing 60.51 mL/min Estimated GFR (MDRD) > 60 Glucose 115 H (74-99) mg/dL Calcium 9.0 (8.5-10.1) mg/dL Curtis Results Last 24 Hours: Microbiology 04/27/20 20:48 Aerobic Blood Culture - Preliminary Blood - Arm, Left NO GROWTH AFTER 2 DAYS Anaerobic Blood Culture - Preliminary NO GROWTH AFTER 2 DAYS Med Orders - Current: Current Medications Acetaminophen (Tylenol) 650 mg PO Q4H PRN PRN Reason: Pain (Mild 1-3)/fever Last Admin: 04/29/20 06:16 Dose: 650 mg Documented by: Albuterol/Ipratropium (Duoneb 3.0-0.5 Mg/3 Ml) 3 ml NEB Q6HRRT [facility] Last Admin: 04/30/20 07:28 Dose: 3 ml Documented by: Albuterol/Ipratropium (Duoneb 3.0-0.5 Mg/3 Ml) 3 ml NEB Q6HRRT PRN PRN Reason: sob Aspirin (Halfprin) 81 mg PO DAILY [facility] Last Admin: 04/30/20 09:50 Dose: 81 mg Documented by: Docusate Sodium (Colace) 100 mg PO BID PRN PRN Reason: Constipation Enoxaparin Sodium (Lovenox) 40 mg SUBCUT DAILY [facility] Last Admin: 04/30/20 09:58 Dose: Not Given Documented by: Hydrochlorothiazide (Hydrochlorothiazide) 50 mg PO DAILY [facility] Last Admin: 04/30/20 09:50 Dose: 50 mg Documented by: Levothyroxine Sodium (Levothyroxine) 75 mcg PO DAILY@0800 [facility] Last Admin: 04/30/20 09:50 Dose: 75 mcg Documented by: Lisinopril (Prinivil) 20 mg PO DAILY [facility] Last Admin: 04/30/20 09:50 Dose: 20 mg Documented by: Lorazepam (Ativan) 1 mg PO Q6HR PRN PRN Reason: Anxiety Last Admin: 04/29/20 21:20 Dose: 1 mg Documented by: Methylprednisolone Sodium Succinate (Solu-Medrol) 40 mg IVPUSH Q8HR [facility] Last Admin: 04/30/20 05:53 Dose: 40 mg Documented by: Miscellaneous Information (Check Patch) 1 ea TRDERM BEDTIME [facility] Last Admin: 04/29/20 21:19 Dose: Not Given Documented by: Nicotine (Habitrol) 14 mg TRDERM DAILY [facility] Last Admin: 04/30/20 10:00 Dose: Not Given Documented by: Omeprazole (Omeprazole) 20 mg PO ACBREAKFAST [facility] Last Admin: 04/30/20 05:54 Dose: Not Given Documented by: Ondansetron HCl (Zofran Odt) 4 mg PO Q6HR PRN PRN Reason: nausea, able to take PO Last Admin: 04/29/20 12:44 Dose: 4 mg Documented by: Sodium Chloride (Saline Flush) 10 ml FLUSH ASDIRECTED PRN PRN Reason: Keep Vein Open Last Admin: 04/29/20 13:57 Dose: 10 ml Documented by: Temazepam (Restoril) 15 mg PO BEDTIME PRN PRN Reason: Sleep Discontinued Medications Albuterol (Proventil Neb Soln) Confirm Administered Dose 2.5 mg .ROUTE .STK-MED ONE Stop: 04/27/20 20:39 Last Admin: 04/27/20 20:41 Dose: 2.5 mg Documented by: Albuterol (Proventil Neb Soln) 2.5 mg NEB ONETIME ONE Stop: 04/27/20 21:05 Last Admin: 04/27/20 21:25 Dose: Not Given Documented by: Albuterol/Ipratropium (Duoneb 3.0-0.5 Mg/3 Ml) 3 ml NEB ONETIME ONE Stop: 04/27/20 21:03 Last Admin: 04/27/20 21:07 Dose: 3 ml Documented by: Albuterol/Ipratropium (Duoneb 3.0-0.5 Mg/3 Ml) 3 ml NEB ONETIME ONE Stop: 04/28/20 00:04 Last Admin: 04/28/20 00:18 Dose: 3 ml Documented by: Albuterol/Ipratropium (Duoneb 3.0-0.5 Mg/3 Ml) 3 ml NEB ONETIME ONE Stop: 04/28/20 04:01 Last Admin: 04/28/20 04:03 Dose: 3 ml Documented by: Albuterol/Ipratropium (Duoneb 3.0-0.5 Mg/3 Ml) 3 ml NEB ONETIME ONE Stop: 04/28/20 08:01 Last Admin: 04/28/20 08:26 Dose: 3 ml Documented by: Azithromycin (Zithromax) 500 mg PO ONETIME ONE Stop: 04/27/20 23:11 Last Admin: 04/27/20 23:21 Dose: 500 mg Documented by: Sodium Chloride (Normal Saline) 1,000 mls @ 999 mls/hr IV .BOLUS ONE Stop: 04/27/20 22:23 Last Admin: 04/27/20 21:25 Dose: 999 mls/hr Documented by: Magnesium Sulfate/Dextrose (Magnesium Sulfate In D5w 100 Premix) 1 gm in 100 mls @ 100 mls/hr IV ONETIME ONE Stop: 04/27/20 22:45 Last Admin: 04/27/20 21:57 Dose: 100 mls/hr Documented by: Magnesium Sulfate/Dextrose (Magnesium Sulfate In D5w 100 Premix) 1 gm in 100 mls @ 100 mls/hr IV ONETIME ONE Stop: 04/27/20 22:46 Last Admin: 04/27/20 22:43 Dose: 100 mls/hr Documented by: Sodium Chloride (Normal Saline) 1,000 mls @ 150 mls/hr IV ASDIRECTED [facility] Last Admin: 04/28/20 01:12 Dose: 150 mls/hr Documented by: Methylprednisolone Sodium Succinate (Solu-Medrol) Confirm Administered Dose 125 mg .ROUTE .STK-MED ONE Stop: 04/27/20 20:45 Last Admin: 04/27/20 20:56 Dose: 125 mg Documented by: Methylprednisolone Sodium Succinate (Solu-Medrol) 125 mg IVPUSH ONETIME ONE Stop: 04/27/20 21:05 Last Admin: 04/27/20 21:25 Dose: Not Given Documented by: Methylprednisolone Sodium Succinate (Solu-Medrol) 125 mg IVPUSH ONETIME ONE Stop: 04/28/20 02:55 Last Admin: 04/28/20 03:00 Dose: 125 mg Documented by: Methylprednisolone Sodium Succinate (Solu-Medrol) 125 mg IVPUSH ONETIME ONE Stop: 04/28/20 09:01 Last Admin: 04/28/20 08:41 Dose: 125 mg Documented by: Sepsis Event Note - Evaluation Sepsis Screening Result: No Definite Risk - Focused Exam Vital Signs: Vital Signs Temp Pulse Resp BP BP Pulse Ox Pulse Ox 04/30/20 09:50 117/60 04/30/20 08:23 98.3 F 68 20 117/60 94 L 04/30/20 07:00 73 93 L - Problem List & Annotations (1) Hypothyroid SNOMED Code(s): 69622176 Code(s): E03.9 - HYPOTHYROIDISM, UNSPECIFIED Status: Acute Current Visit: Yes (2) GERD (gastroesophageal reflux disease) SNOMED Code(s): 595222157 Code(s): K21.9 - GASTRO-ESOPHAGEAL REFLUX DISEASE WITHOUT ESOPHAGITIS Status: Acute Current Visit: Yes (3) Anxiety disorder SNOMED Code(s): 447978736 Code(s): F41.9 - ANXIETY DISORDER, UNSPECIFIED Status: Acute Current Visit: No Qualifiers: Anxiety disorder type: generalized anxiety disorder Qualified Code(s): F41.1 - Generalized anxiety disorder (4) Asthma exacerbation SNOMED Code(s): 345887703 Code(s): J45.901 - UNSPECIFIED ASTHMA WITH (ACUTE) EXACERBATION Status: Acute Current Visit: No Qualifiers: Asthma severity: moderate Asthma persistence: unspecified Qualified Code(s): J45.901 - Unspecified asthma with (acute) exacerbation - My Orders Last 24 Hours: My Active Orders 04/30/20 10:14 Ready for Discharge [RC] PER UNIT ROUTINE - Plan Plan:: 54 years old presented with shortness of breath. The patient has a history of asthma. He is also snorting narcotics. Smoking marijuana. Acute asthma exacerbation Treat with systemic steroids - will not start tapering yet Use DuoNeb as scheduled and as needed Acute hypoxemic respiratory failure Supplement oxygen as needed taper as possible History of narcotic abuse, anxiety Monitor for withdrawal Use Ativan as needed Hypertension Treat with hydrochlorothiazide, lisinopril Hypothyroidism Treat with Synthroid GERD/h/o GI bleed Cont PPI DVT prophylaxis with subcutaneous Lovenox
--- NOTE | 2020-04-30 10:19 | PCM.DCSUM1 ---
Discharge Summary - Hospital Course Free Text/Narrative:: 54 years old presented with shortness of breath. The patient has a history of asthma. He is also snorting narcotics. Smoking marijuana. Acute asthma exacerbation improved Treated with systemic steroids - taper prednisone Use DuoNeb as scheduled and as needed use pulmicort Acute hypoxemic respiratory failure resolved History of narcotic abuse, anxiety Used Ativan as needed Hypertension Treat with hydrochlorothiazide, lisinopril Hypothyroidism Treat with Synthroid GERD/h/o GI bleed Cont PPI Diagnosis: Stroke: No - Discharge Data Discharge Date: 04/30/20 Discharge Disposition: Home, Self-Care 01 Condition: Stable - Referral to Home Health Primary Care Physician: Sharron Muniz MD - Discharge Diagnosis/Problem(s) (1) Hypothyroid SNOMED Code(s): 64893791 ICD Code: E03.9 - HYPOTHYROIDISM, UNSPECIFIED Status: Acute Current Visit: Yes (2) GERD (gastroesophageal reflux disease) SNOMED Code(s): 168414497 ICD Code: K21.9 - GASTRO-ESOPHAGEAL REFLUX DISEASE WITHOUT ESOPHAGITIS Status: Acute Current Visit: Yes (3) Anxiety disorder SNOMED Code(s): 173233404 ICD Code: F41.9 - ANXIETY DISORDER, UNSPECIFIED Status: Acute Current Visit: No Qualifiers: Anxiety disorder type: generalized anxiety disorder Qualified Code(s): F41.1 - Generalized anxiety disorder (4) Asthma exacerbation SNOMED Code(s): 176389273 ICD Code: J45.901 - UNSPECIFIED ASTHMA WITH (ACUTE) EXACERBATION Status: Acute Current Visit: No Qualifiers: Asthma severity: moderate Asthma persistence: unspecified Qualified Code(s): J45.901 - Unspecified asthma with (acute) exacerbation - Patient Instructions Diet: Heart Healthy Diet Activity: As Tolerated - Discharge Plan Prescriptions/Med Rec: Albuterol/Ipratropium [DuoNeb 3.0-0.5 MG/3 ML] 3 ml NEB Q6HRRT PRN #30 neb PRN Reason: Shortness Of Breath predniSONE [Prednisone] 10 mg PO DAILY #31 tablet Budesonide [Pulmicort] 0.5 mg IH BID #28 neb Home Medications: Home Meds Albuterol [Proventil HFA] 1 puff INH QID PRN 08/16/14 [History] Aspirin [Halfprin] 81 mg PO DAILY 08/16/14 [History] hydroCHLOROthiazide [Hydrochlorothiazide] 50 mg PO DAILY 08/16/14 [History] Levothyroxine Sodium [Euthyrox] 75 mcg PO DAILY 03/21/20 [History] Omeprazole 20 mg PO DAILY 03/21/20 [History] lisinopriL [Lisinopril] 20 mg PO DAILY 03/21/20 [History] Acetaminophen [Acetaminophen Extra Strength] 1,000 mg PO QID PRN 04/18/20 [History] Albuterol/Ipratropium [DuoNeb 3.0-0.5 MG/3 ML] 3 ml NEB Q6HRRT PRN #30 neb 04/30/20 [Rx] Budesonide [Pulmicort] 0.5 mg IH BID #28 neb 04/30/20 [Rx] predniSONE [Prednisone] 10 mg PO DAILY #31 tablet 04/30/20 [Rx] Oxygen Therapy Mode: Room Air Referrals: hSarron Muniz MD [Primary Care Provider] - (in 2-3 days) - Discharge Summary/Plan Comment DC Time >30 min.: No - General Info Date of Service: 04/30/20 Subjective Update: feeling better. Off oxygen. Would like to go home. Shortness of breath is much better. Tolerating activity in the room. no associated fever. No chest pain. No swelling. - Patient Data Vitals - Most Recent: Last Vital Signs Temp 98.3 F 04/30/20 08:23 Pulse 68 04/30/20 08:23 Resp 20 04/30/20 08:23 BP 117/60 04/30/20 09:50 Pulse Ox 94 L 04/30/20 08:23 Weight - Most Recent: 186 lb I&O - Last 24 hours: Intake & Output 04/29/20 04/30/20 04/30/20 22:59 06:59 14:59 Intake Total 300 Balance 300 Lab Results - Last 24 hrs: Laboratory Results - last 24 hr 04/30/20 04/30/20 Range/Units 05:13 05:13 WBC 12.4 H (5.0-10.0) 10^3/uL RBC 4.27 L (4.6-6.2) 10^6/uL Hgb 9.9 L (14.0-18.0) g/dL Hct 31.3 L (40.0-54.0) % MCV 73.3 L (80-100) fL MCH 23.2 L (27.0-34.0) pg MCHC 31.6 L (33.0-35.0) g/dL Plt Count 441 (150-450) 10^3/uL Neut % (Auto) 81.1 H (42.2-75.2) % Lymph % (Auto) 7.8 L (20.5-50.1) % Person % (Auto) 10.9 H (2-8) % Eos % (Auto) 0.0 L (1.0-3.0) % Baso % (Auto) 0.2 (0.0-1.0) % Sodium 138 (136-145) mmol/L Potassium 3.8 (3.5-5.1) mmol/L Chloride 101 (98-107) mmol/L Carbon Dioxide 27 (21-32) mmol/L Anion Gap 13.8 H (7-13) mEq/L BUN 25 H (7-18) mg/dL Creatinine 1.23 (0.70-1.30) mg/dL Est Cr Clr Drug Dosing 60.51 mL/min Estimated GFR (MDRD) > 60 Glucose 115 H (74-99) mg/dL Calcium 9.0 (8.5-10.1) mg/dL SURAJ Results - Last 24 hrs: Microbiology 04/27/20 20:48 Aerobic Blood Culture - Preliminary Blood - Arm, Left NO GROWTH AFTER 2 DAYS Anaerobic Blood Culture - Preliminary NO GROWTH AFTER 2 DAYS Med Orders - Current: Current Medications Acetaminophen (Tylenol) 650 mg PO Q4H PRN PRN Reason: Pain (Mild 1-3)/fever Last Admin: 04/29/20 06:16 Dose: 650 mg Documented by: Albuterol/Ipratropium (Duoneb 3.0-0.5 Mg/3 Ml) 3 ml NEB Q6HRRT [facility] Last Admin: 04/30/20 07:28 Dose: 3 ml Documented by: Albuterol/Ipratropium (Duoneb 3.0-0.5 Mg/3 Ml) 3 ml NEB Q6HRRT PRN PRN Reason: sob Aspirin (Halfprin) 81 mg PO DAILY [facility] Last Admin: 04/30/20 09:50 Dose: 81 mg Documented by: Docusate Sodium (Colace) 100 mg PO BID PRN PRN Reason: Constipation Enoxaparin Sodium (Lovenox) 40 mg SUBCUT DAILY [facility] Last Admin: 04/30/20 09:58 Dose: Not Given Documented by: Hydrochlorothiazide (Hydrochlorothiazide) 50 mg PO DAILY [facility] Last Admin: 04/30/20 09:50 Dose: 50 mg Documented by: Levothyroxine Sodium (Levothyroxine) 75 mcg PO DAILY@0800 [facility] Last Admin: 04/30/20 09:50 Dose: 75 mcg Documented by: Lisinopril (Prinivil) 20 mg PO DAILY [facility] Last Admin: 04/30/20 09:50 Dose: 20 mg Documented by: Lorazepam (Ativan) 1 mg PO Q6HR PRN PRN Reason: Anxiety Last Admin: 04/29/20 21:20 Dose: 1 mg Documented by: Methylprednisolone Sodium Succinate (Solu-Medrol) 40 mg IVPUSH Q8HR [facility] Last Admin: 04/30/20 05:53 Dose: 40 mg Documented by: Miscellaneous Information (Check Patch) 1 ea TRDERM BEDTIME [facility] Last Admin: 04/29/20 21:19 Dose: Not Given Documented by: Nicotine (Habitrol) 14 mg TRDERM DAILY [facility] Last Admin: 04/30/20 10:00 Dose: Not Given Documented by: Omeprazole (Omeprazole) 20 mg PO ACBREAKFAST [facility] Last Admin: 04/30/20 05:54 Dose: Not Given Documented by: Ondansetron HCl (Zofran Odt) 4 mg PO Q6HR PRN PRN Reason: nausea, able to take PO Last Admin: 04/29/20 12:44 Dose: 4 mg Documented by: Sodium Chloride (Saline Flush) 10 ml FLUSH ASDIRECTED PRN PRN Reason: Keep Vein Open Last Admin: 04/29/20 13:57 Dose: 10 ml Documented by: Temazepam (Restoril) 15 mg PO BEDTIME PRN PRN Reason: Sleep Discontinued Medications Albuterol (Proventil Neb Soln) Confirm Administered Dose 2.5 mg .ROUTE .STK-MED ONE Stop: 04/27/20 20:39 Last Admin: 04/27/20 20:41 Dose: 2.5 mg Documented by: Albuterol (Proventil Neb Soln) 2.5 mg NEB ONETIME ONE Stop: 04/27/20 21:05 Last Admin: 04/27/20 21:25 Dose: Not Given Documented by: Albuterol/Ipratropium (Duoneb 3.0-0.5 Mg/3 Ml) 3 ml NEB ONETIME ONE Stop: 04/27/20 21:03 Last Admin: 04/27/20 21:07 Dose: 3 ml Documented by: Albuterol/Ipratropium (Duoneb 3.0-0.5 Mg/3 Ml) 3 ml NEB ONETIME ONE Stop: 04/28/20 00:04 Last Admin: 04/28/20 00:18 Dose: 3 ml Documented by: Albuterol/Ipratropium (Duoneb 3.0-0.5 Mg/3 Ml) 3 ml NEB ONETIME ONE Stop: 04/28/20 04:01 Last Admin: 04/28/20 04:03 Dose: 3 ml Documented by: Albuterol/Ipratropium (Duoneb 3.0-0.5 Mg/3 Ml) 3 ml NEB ONETIME ONE Stop: 04/28/20 08:01 Last Admin: 04/28/20 08:26 Dose: 3 ml Documented by: Azithromycin (Zithromax) 500 mg PO ONETIME ONE Stop: 04/27/20 23:11 Last Admin: 04/27/20 23:21 Dose: 500 mg Documented by: Sodium Chloride (Normal Saline) 1,000 mls @ 999 mls/hr IV .BOLUS ONE Stop: 04/27/20 22:23 Last Admin: 04/27/20 21:25 Dose: 999 mls/hr Documented by: Magnesium Sulfate/Dextrose (Magnesium Sulfate In D5w 100 Premix) 1 gm in 100 mls @ 100 mls/hr IV ONETIME ONE Stop: 04/27/20 22:45 Last Admin: 04/27/20 21:57 Dose: 100 mls/hr Documented by: Magnesium Sulfate/Dextrose (Magnesium Sulfate In D5w 100 Premix) 1 gm in 100 mls @ 100 mls/hr IV ONETIME ONE Stop: 04/27/20 22:46 Last Admin: 04/27/20 22:43 Dose: 100 mls/hr Documented by: Sodium Chloride (Normal Saline) 1,000 mls @ 150 mls/hr IV ASDIRECTED [facility] Last Admin: 04/28/20 01:12 Dose: 150 mls/hr Documented by: Methylprednisolone Sodium Succinate (Solu-Medrol) Confirm Administered Dose 125 mg .ROUTE .STK-MED ONE Stop: 04/27/20 20:45 Last Admin: 04/27/20 20:56 Dose: 125 mg Documented by: Methylprednisolone Sodium Succinate (Solu-Medrol) 125 mg IVPUSH ONETIME ONE Stop: 04/27/20 21:05 Last Admin: 04/27/20 21:25 Dose: Not Given Documented by: Methylprednisolone Sodium Succinate (Solu-Medrol) 125 mg IVPUSH ONETIME ONE Stop: 04/28/20 02:55 Last Admin: 04/28/20 03:00 Dose: 125 mg Documented by: Methylprednisolone Sodium Succinate (Solu-Medrol) 125 mg IVPUSH ONETIME ONE Stop: 04/28/20 09:01 Last Admin: 04/28/20 08:41 Dose: 125 mg Documented by: - Exam Quality Assessment: Denies: Supplemental Oxygen General: Reports: Alert, Oriented Neck: Reports: Supple Lungs: Reports: Normal Respiratory Effort, Wheezing (mild b/l ) GI/Abdominal Exam: Normal Bowel Sounds, Soft, Non-Tender Extremities: No Pedal Edema Skin: Reports: Warm, Dry, Intact Neurological: Reports: No New Focal Deficit Psy/Mental Status: Reports: Alert, Normal Affect, Normal Mood
== END 2020-04-30 12:15 | disposition home or self-care (01) | DRG 189 ==
LOC: DL.ED 20:30 → DL.MS 04-28 10:13 → DL.ED 04-28 11:00
PROVIDERS: ADMIT Internal Medicine; ATTEND Internal Medicine
DX: J96.01 Acute respiratory failure with hypoxia (principal); J45.901 Unspecified asthma with (acute) exacerbation; J21.9 Acute bronchiolitis, unspecified; I10 Essential (primary) hypertension; E03.9 Hypothyroidism, unspecified; F41.9 Anxiety disorder, unspecified; K21.9 Gastro-esophageal reflux disease without esophagitis; D64.9 Anemia, unspecified; F12.10 Cannabis abuse, uncomplicated; F12.90 Cannabis use, unspecified, uncomplicated; F41.1 Generalized anxiety disorder; K59.09 Other constipation; M19.90 Unspecified osteoarthritis, unspecified site; E66.9 Obesity, unspecified; Z79.890 Hormone replacement therapy; Z79.899 Other long term (current) drug therapy; Z79.82 Long term (current) use of aspirin; Z79.52 Long term (current) use of systemic steroids; Z88.5 Allergy status to narcotic agent; Z86.19 Personal history of other infectious and parasitic diseases; Z20.828 Contact with and (suspected) exposure to other viral communicable diseases
CPT/HCPCS: 36415; 36600; 71045; 80053; 80305; 81001; 82803; 83605; 83615; 83735; 83880; 84484; 85025; 85379; 86140; 87040; 87635; 93005; 94640 ×5; 96365; 96366; 96375; 96376; 99285; A9270; J2930 ×3; J3475 ×2; J7030 ×2; 80048; 99283; J1650; J2920; J7613-GY; J7620-GY; U0002

== ENCOUNTER 2020-06-19 08:24 | Day surgery (SDC) | payer MEDICAID, OTHER ==
[~2020-06-19 08:24] MED LIST changes: +Dextrose 5%-0.45% NaCl 1,000 ML IV SCH; +Midazolam 1 MG/ML 2 ML SDV ONE; +fentaNYL 100 MCG/2 ML SDV ONE
[2020-06-19] MEDS ORDERED: fentaNYL 100 MCG/2 ML SDV IV ONE ×5 (08:25→09:36)
[2020-06-19] MEDS ORDERED: Midazolam 1 MG/ML 2 ML SDV IV ONE ×7 (08:25→09:27)
--- NOTE | 2020-06-19 11:04 | OR ---
DATE: 06/19/2020 PROCEDURES: Total colonoscopy and cold snare polypectomy. INSTRUMENT USED: PCF-H190DL Olympus video colonoscope. PREMEDICATIONS: Fentanyl 125 mcg intravenous, Versed 4 mg intravenous. Nasal O2 cannula. The procedure was done under pulse oximetry, BP recording, and traffic monitor specialist. INDICATION: The patient with gastrointestinal bleeding and iron deficiency anemia. Colonoscopy examination is done for detection of any polypoid lesions and removal, endoscopic hemostasis therapy if needed. DESCRIPTION OF PROCEDURE: Initial rectal exam was unremarkable. Rigid anoscopy was normal. The colonoscope was passed up to the ileocecal area. Photographs were taken of the normal-appearing cecum, identified by landmarks of appendiceal orifice and double-bulged ileocecal folds. No bleeding was noted from any of the visualized areas at the commencement of the examination. There was large amount of fecal material that had to be aspirated. The bowel preparation was [place] scale 2 in all the regions, total #6. The colon was found to be redundant, exam a bit prolonged. In the mid ascending colon, 1 cm sized benign- appearing polyp was noted, photograph was taken, cold snare polypectomy was done, the tissue was retrieved and sent for histopathology. Probing the proximal sides of folds and flexures using adequate distention and clearing up the stool material, withdrawal of the scope was made, cecum to rectum time over 6 minutes. No stricture. No vascular ectasia. No large isolated ulceration seen. No evidence of diffuse inflammatory bowel disease in the form of friability, contact bleeding, or ulcerations. No bleeding was noted from any of the visualized areas at the completion of examination. IMPRESSION: Ascending colon polyp. The patient tolerated the procedure well. [facility] /[id number]
[2020-06-19 12:44] VITALS: BP 104/62; PULSE 64
--- NOTE | 2020-06-20 09:23 | LETTER ---
06/19/2020 RE: JONATHON DESAI : 1965 [address] [facility] [address] [place] [address] Dear Mr. Goldsmithvenessasue: Mr. Jonathon Desai had colonoscopic examination done this morning and he tolerated the procedure well. I herewith send a copy of the endoscopy note and photographs. Thank you. Sincerely, [facility] /[id number]
== END 2020-06-19 11:45 | disposition home or self-care (01) ==
LOC: DL.ENDO 08:24
PROVIDERS: ATTEND Internal Medicine Gastroenterology
DX: D12.2 Benign neoplasm of ascending colon (principal); D50.9 Iron deficiency anemia, unspecified; E66.09 Other obesity due to excess calories; I10 Essential (primary) hypertension; F17.210 Nicotine dependence, cigarettes, uncomplicated; Z79.82 Long term (current) use of aspirin; Z79.899 Other long term (current) drug therapy; Z88.5 Allergy status to narcotic agent; Z68.31 Body mass index [BMI] 31.0-31.9, adult
CPT/HCPCS: 45385; J2250; J3010; J7042

== ENCOUNTER 2020-08-03 16:34 | Emergency (ER) | payer MEDICAID ==
[2020-08-03 16:43] VITALS: BP 109/48; PULSE 80
--- NOTE | 2020-08-03 17:16 | EDM.PDOC ---
ED HPI GENERAL MEDICAL PROBLEM - General Chief Complaint: General Time Seen by Provider: 08/03/20 16:35 Source of Information: Reports: Patient, EMS, Old Records, RN, RN Notes Reviewed History Limitations: Reports: No Limitations - History of Present Illness INITIAL COMMENTS - FREE TEXT/NARRATIVE: Patient presents to the ED via EMS with complaints of fatigue, weakness, and chills. The patient reports a history of GI bleed within the past month that required transfusion. The patient states he has since undergone an EGD and colonoscopy with no lesions noted and no interventions performed. He also r eports receiving a CT five days ago that he has not yet received results for. The patient states "...I feel like I did when by blood was low." He denies any sources of active bleed, including epistaxis, hemoptysis, hematemesis, melena, or hematochezia. He denies chest pain, palpitations, nausea, vomiting, or diarrhea. The patient alcohol or recreational drug use, but attest to using one tin of chewing tobacco per day. He denies any changes to his medications or diet. - Related Data Allergies Allergy/AdvReac Type Severity Reaction Status Date / Time Penicillins Allergy Other Verified 08/03/20 16:40 codeine AdvReac Nausea and Verified 08/03/20 16:40 Vomiting Home Meds: Home Meds Albuterol [Proventil HFA] 2 puff INH QID PRN 08/16/14 [History] Aspirin [Halfprin] 81 mg PO DAILY 08/16/14 [History] hydroCHLOROthiazide [Hydrochlorothiazide] 50 mg PO DAILY 08/16/14 [History] Levothyroxine Sodium [Euthyrox] 75 mcg PO DAILY 03/21/20 [History] Omeprazole 20 mg PO DAILY 03/21/20 [History] lisinopriL [Lisinopril] 20 mg PO DAILY 03/21/20 [History] Acetaminophen [Acetaminophen Extra Strength] 1,000 mg PO QID PRN 04/18/20 [History] Albuterol/Ipratropium [DuoNeb 3.0-0.5 MG/3 ML] 3 ml NEB Q6HRRT PRN #30 neb 04/30/20 [Rx] Budesonide [Pulmicort] 0.5 mg IH BID #28 neb 04/30/20 [Rx] Ferrous Sulfate 325 mg PO DAILY 12/31/20 [History] diphenhydrAMINE [Benadryl] 100 mg PO BEDTIME 06/19/20 [History] Past Medical History HEENT History: Reports: None Cardiovascular History: Reports: Hypertension Respiratory History: Reports: Asthma Gastrointestinal History: Reports: Chronic Constipation, Colon Polyp, GERD, GI Bleed, Hepatitis Genitourinary History: Reports: None Musculoskeletal History: Reports: Arthritis, Osteoarthritis Neurological History: Reports: None Psychiatric History: Reports: Anxiety Endocrine/Metabolic History: Reports: Hypothyroidism, Obesity/BMI 30+ Hematologic History: Reports: Anemia, Blood Transfusion(s) Immunologic History: Reports: None Oncologic (Cancer) History: Reports: None Dermatologic History: Reports: Other (See Below) Other Dermatologic History: edema DONTA LE - Infectious Disease History Infectious Disease History: Reports: Hepatitis C - Past Surgical History Head Surgeries/Procedures: Reports: None HEENT Surgical History: Reports: None Cardiovascular Surgical History: Reports: None Respiratory Surgical History: Reports: None GI Surgical History: Reports: Colonoscopy, EGD, Polypectomy Male Surgical History: Reports: None Endocrine Surgical History: Reports: None Neurological Surgical History: Reports: None Musculoskeletal Surgical History: Reports: None Oncologic Surgical History: Reports: None Social & Family History - Family History Family Medical History: No Pertinent Family History - Tobacco Use Years of Tobacco use: 10 - Caffeine Use Caffeine Use: Reports: Coffee, Soda Other Caffeine Use: AVERAGE 3 BEVERAGES DAILY - Recreational Drug Use Recreational Drug Use: Yes - Living Situation & Occupation Occupation: Employed ED ROS GENERAL - Review of Systems Review Of Systems: Comprehensive ROS is negative, except as noted in HPI. ED EXAM, GENERAL - Physical Exam Exam: See Below Exam Limited By: No Limitations General Appearance: Alert, Anxious Eye Exam: Bilateral Eye: EOMI, PERRL (2mm), Other (Injected sclera) Throat/Mouth: Normal Inspection, Normal Voice, No Airway Compromise Head: Atraumatic, Normocephalic Respiratory/Chest: No Respiratory Distress, Lungs Clear, Normal Breath Sounds, No Accessory Muscle Use, Chest Non-Tender Cardiovascular: Normal Peripheral Pulses, Regular Rate, Rhythm, No Edema, No Gallop, No JVD, No Murmur, No Rub Peripheral Pulses: 2+: Radial (L), Radial (R) GI/Abdominal: Normal Bowel Sounds, Soft, Non-Tender, No Distention, No Mass, Pelvis Stable. No: Guarding, Rigid, Rebound (Male) Exam: Deferred Rectal (Males) Exam: Deferred Back Exam: Normal Inspection, Full Range of Motion. No: CVA Tenderness (L), CVA Tenderness (R) Extremities: Normal Inspection, Normal Range of Motion, Non-Tender, Normal Capillary Refill, No Pedal Edema Neurological: Alert, Oriented, CN II-XII Intact, Normal Cognition, Normal Gait, Unresponsive Psychiatric: Anxious, Other (Rapid speech) Skin Exam: Warm, Dry, Intact, Normal Color, No Rash. No: Ecchymosis, Erythema, Jaundice, Mottled, Pallor, Petechiae Course - Vital Signs Last Recorded V/S: Last Vital Signs Temp 99.2 F 08/03/20 16:41 Pulse 80 08/03/20 16:41 Resp 20 08/03/20 16:41 BP 109/48 L 08/03/20 16:41 Pulse Ox 98 08/03/20 16:41 - Orders/Labs/Meds Labs: Laboratory Tests 08/03/20 08/03/20 08/03/20 Range/Units 16:50 16:50 17:16 WBC 7.9 (5.0-10.0) 10^3/uL RBC 4.53 L (4.6-6.2) 10^6/uL Hgb 12.7 L D (14.0-18.0) g/dL Hct 38.8 L (40.0-54.0) % MCV 85.7 D (80-100) fL MCH 28.0 (27.0-34.0) pg MCHC 32.7 L (33.0-35.0) g/dL Plt Count 460 H (150-450) 10^3/uL Neut % (Auto) 61.3 (42.2-75.2) % Lymph % (Auto) 21.8 (20.5-50.1) % [place] % (Auto) 13.4 H (2-8) % Eos % (Auto) 2.6 (1.0-3.0) % Baso % (Auto) 0.9 (0.0-1.0) % PT (9.0-12.0) SEC INR (0.9-1.2) APTT (22.0-34.0) SEC Sodium (136-145) mmol/L Potassium (3.5-5.1) mmol/L Chloride (98-107) mmol/L Carbon Dioxide (21-32) mmol/L Anion Gap (7-13) mEq/L BUN (7-18) mg/dL Creatinine (0.70-1.30) mg/dL Est Cr Clr Drug Dosing mL/min Estimated GFR (MDRD) BUN/Creatinine Ratio (No establ ref range) Glucose (74-99) mg/dL Lactic Acid (0.4-2.0) mmol/L Calcium (8.5-10.1) mg/dL Total Bilirubin (0.2-1.0) mg/dL AST (15-37) U/L ALT (16-63) U/L Alkaline Phosphatase (46-116) U/L C-Reactive Protein (0.0-0.9) mg/dL Total Protein (6.4-8.2) g/dL Albumin (3.4-5.0) g/dL Globulin Albumin/Globulin Ratio Urine Color Yellow (YELLOW) Urine Appearance Clear (CLEAR) Urine pH 5.5 (5.0-9.0) Ur Specific [place] 1.025 (1.005-1.030) Urine Protein Negative (NEGATIVE) Urine Glucose (UA) Negative (NEGATIVE) Urine Ketones Negative (NEGATIVE) Urine Occult Blood Negative (NEGATIVE) Urine Nitrite Negative (NEGATIVE) Urine Bilirubin Negative (NEGATIVE) Urine Urobilinogen 0.2 (0.2-1.0) mg/dL Ur Leukocyte Esterase Negative (NEGATIVE) Urine Opiates Screen Negative (NEGATIVE) Ur Oxycodone Screen Negative (NEGATIVE) Urine Methadone Screen Negative (NEGATIVE) Ur Barbiturates Screen Negative (NEGATIVE) U Tricyclic Antidepress Negative (NEGATIVE) Ur Phencyclidine Scrn Negative (NEGATIVE) Ur Amphetamine Screen Positive H (NEGATIVE) U Methamphetamines Scrn Positive H (NEGATIVE) Urine MDMA Screen Negative (NEGATIVE) U Benzodiazepines Scrn Negative (NEGATIVE) Urine Cocaine Screen Negative (NEGATIVE) U Marijuana (THC) Screen Positive H (NEGATIVE) Ethyl Alcohol (0) mg/dL Blood Type Gel Antibody Screen 08/03/20 08/03/20 08/03/20 Range/Units 17:16 17:16 17:16 WBC (5.0-10.0) 10^3/uL RBC (4.6-6.2) 10^6/uL Hgb (14.0-18.0) g/dL Hct (40.0-54.0) % MCV (80-100) fL MCH (27.0-34.0) pg MCHC (33.0-35.0) g/dL Plt Count (150-450) 10^3/uL Neut % (Auto) (42.2-75.2) % Lymph % (Auto) (20.5-50.1) % [place] % (Auto) (2-8) % Eos % (Auto) (1.0-3.0) % Baso % (Auto) (0.0-1.0) % PT 10.1 (9.0-12.0) SEC INR 1.1 (0.9-1.2) APTT 24.0 (22.0-34.0) SEC Sodium 136 (136-145) mmol/L Potassium 4.0 (3.5-5.1) mmol/L Chloride 100 (98-107) mmol/L Carbon Dioxide 28 (21-32) mmol/L Anion Gap 12.0 (7-13) mEq/L BUN 23 H (7-18) mg/dL Creatinine 1.69 H (0.70-1.30) mg/dL Est Cr Clr Drug Dosing 43.52 mL/min Estimated GFR (MDRD) 42 BUN/Creatinine Ratio 13.6 (No establ ref range) Glucose 99 (74-99) mg/dL Lactic Acid 1.1 (0.4-2.0) mmol/L Calcium 8.8 (8.5-10.1) mg/dL Total Bilirubin 0.2 (0.2-1.0) mg/dL AST 30 (15-37) U/L ALT 51 (16-63) U/L Alkaline Phosphatase 67 (46-116) U/L C-Reactive Protein < 0.2 (0.0-0.9) mg/dL Total Protein 7.1 (6.4-8.2) g/dL Albumin 3.5 (3.4-5.0) g/dL Globulin 3.6 Albumin/Globulin Ratio 1.0 Urine Color (YELLOW) Urine Appearance (CLEAR) Urine pH (5.0-9.0) Ur Specific [place] (1.005-1.030) Urine Protein (NEGATIVE) Urine Glucose (UA) (NEGATIVE) Urine Ketones (NEGATIVE) Urine Occult Blood (NEGATIVE) Urine Nitrite (NEGATIVE) Urine Bilirubin (NEGATIVE) Urine Urobilinogen (0.2-1.0) mg/dL Ur Leukocyte Esterase (NEGATIVE) Urine Opiates Screen (NEGATIVE) Ur Oxycodone Screen (NEGATIVE) Urine Methadone Screen (NEGATIVE) Ur Barbiturates Screen (NEGATIVE) U Tricyclic Antidepress (NEGATIVE) Ur Phencyclidine Scrn (NEGATIVE) Ur Amphetamine Screen (NEGATIVE) U Methamphetamines Scrn (NEGATIVE) Urine MDMA Screen (NEGATIVE) U Benzodiazepines Scrn (NEGATIVE) Urine Cocaine Screen (NEGATIVE) U Marijuana (THC) Screen (NEGATIVE) Ethyl Alcohol < 3 (0) mg/dL Blood Type Gel Antibody Screen 08/03/20 Range/Units 17:16 WBC (5.0-10.0) 10^3/uL RBC (4.6-6.2) 10^6/uL Hgb (14.0-18.0) g/dL Hct (40.0-54.0) % MCV (80-100) fL MCH (27.0-34.0) pg MCHC (33.0-35.0) g/dL Plt Count (150-450) 10^3/uL Neut % (Auto) (42.2-75.2) % Lymph % (Auto) (20.5-50.1) % [place] % (Auto) (2-8) % Eos % (Auto) (1.0-3.0) % Baso % (Auto) (0.0-1.0) % PT (9.0-12.0) SEC INR (0.9-1.2) APTT (22.0-34.0) SEC Sodium (136-145) mmol/L Potassium (3.5-5.1) mmol/L Chloride (98-107) mmol/L Carbon Dioxide (21-32) mmol/L Anion Gap (7-13) mEq/L BUN (7-18) mg/dL Creatinine (0.70-1.30) mg/dL Est Cr Clr Drug Dosing mL/min Estimated GFR (MDRD) BUN/Creatinine Ratio (No establ ref range) Glucose (74-99) mg/dL Lactic Acid (0.4-2.0) mmol/L Calcium (8.5-10.1) mg/dL Total Bilirubin (0.2-1.0) mg/dL AST (15-37) U/L ALT (16-63) U/L Alkaline Phosphatase (46-116) U/L C-Reactive Protein (0.0-0.9) mg/dL Total Protein (6.4-8.2) g/dL Albumin (3.4-5.0) g/dL Globulin Albumin/Globulin Ratio Urine Color (YELLOW) Urine Appearance (CLEAR) Urine pH (5.0-9.0) Ur Specific [place] (1.005-1.030) Urine Protein (NEGATIVE) Urine Glucose (UA) (NEGATIVE) Urine Ketones (NEGATIVE) Urine Occult Blood (NEGATIVE) Urine Nitrite (NEGATIVE) Urine Bilirubin (NEGATIVE) Urine Urobilinogen (0.2-1.0) mg/dL Ur Leukocyte Esterase (NEGATIVE) Urine Opiates Screen (NEGATIVE) Ur Oxycodone Screen (NEGATIVE) Urine Methadone Screen (NEGATIVE) Ur Barbiturates Screen (NEGATIVE) U Tricyclic Antidepress (NEGATIVE) Ur Phencyclidine Scrn (NEGATIVE) Ur Amphetamine Screen (NEGATIVE) U Methamphetamines Scrn (NEGATIVE) Urine MDMA Screen (NEGATIVE) U Benzodiazepines Scrn (NEGATIVE) Urine Cocaine Screen (NEGATIVE) U Marijuana (THC) Screen (NEGATIVE) Ethyl Alcohol (0) mg/dL Blood Type O POSITIVE Gel Antibody Screen Negative - Re-Assessments/Exams Free Text/Narrative Re-Assessment/Exam: 08/03/20 Mild anemia noted with a Hgb 12.7; review of records show last three Hgb range from 9-10 and a 5.6 in April 2020. Plt 460. No indications of infection, WBC 7.9 with no left shift. Patient noted to be dehydrated with creatinine 1.69 and BUN 23, no elevated lactic acid elevation. UA unremarkable for acute processes. Tox screen positive for Methamphetamines/Amphetamines and THC. ETOH negative. Discussed findings of examination and blood work with patient. Discussed dehydration and methamphetamine abuse. Given patient's worry about repeat GI bleed, discussed follow up with primary care provider to review CT scan and further evaluation of this problem. Red flag signs and symptoms which would warrant evaluation discussed with patient. He verbalized understanding and agreement with the plan of care. Departure - Departure Time of Disposition: 17:50 Disposition: Home, Self-Care 01 Condition: Good Clinical Impression: Methamphetamine abuse, Dehydration Anemia Qualifiers: Anemia type: unspecified type Qualified Code(s): D64.9 - Anemia, unspecified - Discharge Information *PRESCRIPTION DRUG MONITORING PROGRAM REVIEWED*: Not Applicable *COPY OF PRESCRIPTION DRUG MONITORING REPORT IN PATIENT TAHIR: Not Applicable Instructions: Dehydration, Adult, [id number], Finding Treatment for Addiction Referrals: Morgan Day [Primary Care Provider] - Forms: ED Department Discharge Additional Instructions: 1.) Drink plenty of water to stay hydrated. 2.) Follow up with your primary care provider regarding your previous CT scan. 3.) Avoid use of methamphetamines or additional drugs. Sepsis Event Note (ED) - Evaluation Sepsis Screening Result: No Definite Risk
[2020-08-03 17:40] LABS: CHLORIDE,CL 100 mmol/L (98-107); SODIUM,NA 136 mmol/L (136-145)
== END 2020-08-03 17:59 | disposition home or self-care (01) ==
LOC: DL.ED 16:34
DX: D64.9 Anemia, unspecified (principal); E86.0 Dehydration; F15.10 Other stimulant abuse, uncomplicated; I10 Essential (primary) hypertension; J45.909 Unspecified asthma, uncomplicated; K21.9 Gastro-esophageal reflux disease without esophagitis; M19.90 Unspecified osteoarthritis, unspecified site; E03.9 Hypothyroidism, unspecified; E66.9 Obesity, unspecified; Z68.29 Body mass index [BMI] 29.0-29.9, adult; Z88.0 Allergy status to penicillin; Z88.5 Allergy status to narcotic agent; Z79.82 Long term (current) use of aspirin; Z72.0 Tobacco use
CPT/HCPCS: 36415; 80053; 80305-QW; 80307; 81003; 82272; 83605; 85025; 85610; 85730; 86140; 86850; 86900; 86901; 99285-25

== ENCOUNTER 2020-11-10 02:40 | Emergency (ER) | payer MEDICAID, OTHER ==
[2020-11-10 02:30] VITALS: BP 136/93; PULSE 78
[2020-11-10] MEDS ORDERED: Sodium Chloride 0.9% 10 ML Syringe FLUSH PRN (02:45)
[2020-11-10] MEDS ORDERED: Budesonide 0.5 MG/2 ML Neb Susp NEB ONE (02:55)
[2020-11-10] MEDS ORDERED: methylPREDNISolone Sodium Succinate 125 MG/2 ML SDV IVPUSH ONE (02:55)
[2020-11-10] MEDS ORDERED: Albuterol/Ipratropium 3.0-0.5 MG/3 ML Neb Soln NEB ONE (02:55)
--- NOTE | 2020-11-10 02:56 | EDM.PDOC ---
ED HPI GENERAL MEDICAL PROBLEM - General Chief Complaint: Respiratory Problem Stated Complaint: [facility] Time Seen by Provider: 11/10/20 02:40 Source of Information: Reports: Patient History Limitations: Reports: No Limitations - History of Present Illness INITIAL COMMENTS - FREE TEXT/NARRATIVE: Patient comes emergency department today from home by ambulance with complaints of shortness of breath tightness in his chest and wheezing. His chronic asthmatic was been out of his budesonide since he does not remember. He has been using his DuoNeb's at home for his shortness of breath and wheezing without much improvement. Shortness of breath got much worse during the night last night to the point where he had to call the ambulance because he could not breathe. He was given a albuterol nebulizer in route with some improvement. Upon arrival he complains still of tightness in his chest difficulty breathing cough and congestion. He has no weakness dizziness lightheadedness. No palpitations. No syncope. No fever no chills. He does continue to smoke. He has not been on steroids for many months. No abdominal pain nausea or vomiting. No hematuria dysuria or urinary frequency. No black or tarry stools. He does not have his Covid vaccine. He has not been exposed anyone that he is aware of. He has no loss of taste or smell. No diarrhea. - Related Data Allergies Allergy/AdvReac Type Severity Reaction Status Date / Time Penicillins Allergy Other Verified 08/03/20 16:40 codeine AdvReac Nausea and Verified 08/03/20 16:40 Vomiting Home Meds: Home Meds Albuterol [Proventil HFA] 2 puff INH QID PRN 08/16/14 [History] Aspirin [Halfprin] 81 mg PO DAILY 08/16/14 [History] hydroCHLOROthiazide [Hydrochlorothiazide] 50 mg PO DAILY 08/16/14 [History] Levothyroxine Sodium [Euthyrox] 75 mcg PO DAILY 03/21/20 [History] Omeprazole 20 mg PO DAILY 03/21/20 [History] lisinopriL [Lisinopril] 20 mg PO DAILY 03/21/20 [History] Acetaminophen [Acetaminophen Extra Strength] 1,000 mg PO QID PRN 04/18/20 [History] Albuterol/Ipratropium [DuoNeb 3.0-0.5 MG/3 ML] 3 ml NEB Q6HRRT PRN #30 neb 04/30/20 [Rx] Budesonide [Pulmicort] 0.5 mg IH BID #28 neb 04/30/20 [Rx] Ferrous Sulfate 325 mg PO DAILY 06/19/20 [History] diphenhydrAMINE [Benadryl] 100 mg PO BEDTIME 06/19/20 [History] Past Medical History HEENT History: Reports: None Cardiovascular History: Reports: Hypertension Respiratory History: Reports: Asthma Gastrointestinal History: Reports: Chronic Constipation, Colon Polyp, GERD, GI Bleed, Hepatitis Genitourinary History: Reports: None Musculoskeletal History: Reports: Arthritis, Osteoarthritis Neurological History: Reports: None Psychiatric History: Reports: Anxiety Endocrine/Metabolic History: Reports: Hypothyroidism, Obesity/BMI 30+ Hematologic History: Reports: Anemia, Blood Transfusion(s) Immunologic History: Reports: None Oncologic (Cancer) History: Reports: None Dermatologic History: Reports: Other (See Below) Other Dermatologic History: edema DONTA LE - Infectious Disease History Infectious Disease History: Reports: Hepatitis C - Past Surgical History Head Surgeries/Procedures: Reports: None HEENT Surgical History: Reports: None Cardiovascular Surgical History: Reports: None Respiratory Surgical History: Reports: None GI Surgical History: Reports: Colonoscopy, EGD, Polypectomy Male Surgical History: Reports: None Endocrine Surgical History: Reports: None Neurological Surgical History: Reports: None Musculoskeletal Surgical History: Reports: None Oncologic Surgical History: Reports: None Social & Family History - Family History Family Medical History: No Pertinent Family History - Caffeine Use Caffeine Use: Reports: None Other Caffeine Use: AVERAGE 3 BEVERAGES DAILY - Alcohol Use Days Per Week of Alcohol Use: 1 Number of Drinks Per Day: 1 Total Drinks Per Week: 1 - Recreational Drug Use Recreational Drug Use: No - Living Situation & Occupation Occupation: Employed ED ROS GENERAL - Review of Systems Review Of Systems: Comprehensive ROS is negative, except as noted in HPI. ED EXAM, GENERAL - Physical Exam Exam: See Below Free Text/Narrative:: Upon arrival the patient is in mild to moderate distress. He is only able to speak in 5-6 word sentences without having to grab a breath. He does have some audible wheezing upon entering the room. He is alert appropriate. He is maintaining his airway. He has minimal accessory muscle use. No retractions. Exam Limited By: No Limitations General Appearance: Alert, WD/WN, Mild Distress Eye Exam: Bilateral Eye: EOMI, PERRL Ears: Normal External Exam Nose: Normal Inspection, Normal Mucosa Throat/Mouth: Normal Inspection Head: Atraumatic, Normocephalic Neck: Normal Inspection, Supple, Non-Tender Respiratory/Chest: Chest Non-Tender, Respiratory Distress, Decreased Breath Sounds, Wheezing, Accessory Muscle Use (Minimal). No: Crackles, Rhonchi, Retractions Cardiovascular: Normal Peripheral Pulses, Regular Rate, Rhythm Peripheral Pulses: 2+: Radial (L), Radial (R), Posterior Tibial (L), Posterior Tibial (R), Dorsalis Pedis (L), Dorsalis Pedis (R) GI/Abdominal: Normal Bowel Sounds, Soft, Non-Tender (Male) Exam: Deferred Rectal (Males) Exam: Deferred Back Exam: Normal Inspection, Full Range of Motion Extremities: Normal Inspection, Normal Range of Motion, Non-Tender, No Pedal Edema, Normal Capillary Refill Neurological: Alert, Oriented, Normal Cognition, Normal Gait, No Motor/Sensory Deficits Psychiatric: Normal Affect, Normal Mood Skin Exam: Warm, Dry, Intact, Normal Color, No Rash Course - Vital Signs Last Recorded V/S: Last Vital Signs Temp 98.2 F 11/10/20 02:29 Pulse 78 11/10/20 02:29 Resp 17 11/10/20 02:29 BP 136/93 H 11/10/20 02:29 Pulse Ox 92 L 11/10/20 02:29 - Orders/Labs/Meds Orders: Active Orders 24 hr Category Date Time Status Peripheral IV Insertion Adult [OM.PC] Stat Oth 11/10/20 02:46 Ordered Labs: Laboratory Tests 11/10/20 11/10/20 11/10/20 Range/Units 02:46 02:46 02:46 WBC 8.8 (5.0-10.0) 10^3/uL RBC 4.70 (4.6-6.2) 10^6/uL Hgb 14.4 D (14.0-18.0) g/dL Hct 42.6 (40.0-54.0) % MCV 90.6 D (80-100) fL MCH 30.6 (27.0-34.0) pg MCHC 33.8 (33.0-35.0) g/dL Plt Count 380 D (150-450) 10^3/uL Neut % (Auto) 41.3 L (42.2-75.2) % Lymph % (Auto) 20.7 (20.5-50.1) % [place] % (Auto) 11.0 H (2-8) % Eos % (Auto) 25.3 H (1.0-3.0) % Baso % (Auto) 1.7 H (0.0-1.0) % Add Manual Diff Yes Neutrophils % (Manual) 44 (42-75) % Band Neutrophils % 1 % Lymphocytes % (Manual) 25 (20-50) % Monocytes % (Manual) 11 H (2-8) % Eosinophils % (Manual) 19 H (1-3) % Platelet Estimate Adequate Sodium 135 L (136-145) mmol/L Potassium 3.4 L (3.5-5.1) mmol/L Chloride 99 (98-107) mmol/L Carbon Dioxide 28 (21-32) mmol/L Anion Gap 11.4 (7-13) mEq/L BUN 14 (7-18) mg/dL Creatinine 1.80 H (0.70-1.30) mg/dL Est Cr Clr Drug Dosing 40.86 mL/min Estimated GFR (MDRD) 39 BUN/Creatinine Ratio 7.8 (No establ ref range) Glucose 116 H (70-99) mg/dL Lactic Acid 1.0 (0.4-2.0) mmol/L Calcium 8.9 (8.5-10.1) mg/dL Total Bilirubin 0.7 (0.2-1.0) mg/dL AST 39 H (15-37) U/L ALT 44 (16-63) U/L Alkaline Phosphatase 57 (46-116) U/L Troponin I < 0.017 (0.000-0.056) ng/mL Total Protein 7.3 (6.4-8.2) g/dL Albumin 3.7 (3.4-5.0) g/dL Globulin 3.6 Albumin/Globulin Ratio 1.0 SARS-CoV-2 RNA (RADHA) (NEGATIVE) 11/10/20 Range/Units 03:10 WBC (5.0-10.0) 10^3/uL RBC (4.6-6.2) 10^6/uL Hgb (14.0-18.0) g/dL Hct (40.0-54.0) % MCV (80-100) fL MCH (27.0-34.0) pg MCHC (33.0-35.0) g/dL Plt Count (150-450) 10^3/uL Neut % (Auto) (42.2-75.2) % Lymph % (Auto) (20.5-50.1) % [place] % (Auto) (2-8) % Eos % (Auto) (1.0-3.0) % Baso % (Auto) (0.0-1.0) % Add Manual Diff Neutrophils % (Manual) (42-75) % Band Neutrophils % % Lymphocytes % (Manual) (20-50) % Monocytes % (Manual) (2-8) % Eosinophils % (Manual) (1-3) % Platelet Estimate Sodium (136-145) mmol/L Potassium (3.5-5.1) mmol/L Chloride (98-107) mmol/L Carbon Dioxide (21-32) mmol/L Anion Gap (7-13) mEq/L BUN (7-18) mg/dL Creatinine (0.70-1.30) mg/dL Est Cr Clr Drug Dosing mL/min Estimated GFR (MDRD) BUN/Creatinine Ratio (No establ ref range) Glucose (70-99) mg/dL Lactic Acid (0.4-2.0) mmol/L Calcium (8.5-10.1) mg/dL Total Bilirubin (0.2-1.0) mg/dL AST (15-37) U/L ALT (16-63) U/L Alkaline Phosphatase (46-116) U/L Troponin I (0.000-0.056) ng/mL Total Protein (6.4-8.2) g/dL Albumin (3.4-5.0) g/dL Globulin Albumin/Globulin Ratio SARS-CoV-2 RNA (RADHA) Negative (NEGATIVE) Meds: Medications Discontinued Medications Generic Name Dose Route Start Last Admin Trade Name Freq PRN Reason Stop Dose Admin Albuterol 2.5 mg 11/10/20 03:40 11/10/20 03:43 Albuterol 0.083% 2.5 Mg/3 Ml Neb Soln NEB 11/10/20 03:41 2.5 mg ONETIME ONE Administration Albuterol/Ipratropium 3 ml 11/10/20 02:55 11/10/20 03:07 Albuterol/Ipratropium 3.0-0.5 Mg/3 Ml Neb Soln NEB 11/10/20 02:56 3 ml ONETIME ONE Administration Budesonide 0.5 mg 11/10/20 02:55 11/10/20 03:07 Budesonide 0.5 Mg/2 Ml Neb Susp NEB 11/10/20 02:56 0.5 mg ONETIME ONE Administration Lactated Ringer's 1,000 mls @ 1,000 mls/hr 11/10/20 03:32 11/10/20 03:41 Ringers, Lactated IV 11/10/20 04:31 1,000 mls/hr .BOLUS ONE Administration Methylprednisolone Sodium Succinate 125 mg 11/10/20 02:55 11/10/20 03:06 Methylprednisolone Sodium Succinate 125 Mg/2 Ml Sdv IVPUSH 11/10/20 02:56 125 mg ONETIME ONE Administration Sodium Chloride 10 ml 11/10/20 02:45 11/10/20 02:52 Sodium Chloride 0.9% 10 Ml Syringe FLUSH 10 ml ASDIRECTED PRN Administration Keep Vein Open - Radiology Interpretation Free Text/Narrative:: CXR per radiology no acute findings. - Re-Assessments/Exams Free Text/Narrative Re-Assessment/Exam: 11/10/20 IV was established abs are drawn. The patient was given a DuoNeb desonide neb. Solu-Medrol 105 mg IV push. EKG shows a normal sinus rhythm without ST elevation or depression when reviewed extemporaneously by myself. Unchanged from previous. Chest x-ray per radiology shows no acute findings. Laboratory evaluation with a WBC of 8.8, hemoglobin 14.4, platelet 380. CMP with a sodium 135 potassium 3.4, BUN 14 creatinine 1.8 which is up from his baseline of 1.5-1.6. Glucose 116 liver enzymes unremarkable. Lactic normal at 1.0. Troponin less than 0.017. Covid negative. Patient was given a liter of fluid due to his kidney function. Patient had quite a bit of improvement with the above therapy. His shortness of breath and his tightness in his chest is completely resolved. He still has some inspiratory and expiratory wheezing with after a dose of albuterol reso lved. I discussed with the patient at length the importance of making sure that he is taking a daily controller such as an inhaled steroid like his budesonide. He has been out of this for quite some time. I explained the difference between rescue inhalers as well as maintenance medications for his asthma. We will send him home with prednisone for the next 5 days. I did give him a prescription as well for his budesonide to be refilled. I think is also important for him to see his primary care provider and discuss seeing nephrology as he has worsening kidney function and is never seen nephrology for this. Discharge directions as below are explained to patient he was comfortable this plan his questions were answered. Departure - Departure Time of Disposition: 03:57 Disposition: Home, Self-Care 01 Clinical Impression: Asthma exacerbation Qualifiers: Asthma severity: moderate Asthma persistence: unspecified Qualified Code(s): J45.901 - Unspecified asthma with (acute) exacerbation Chronic renal failure Qualifiers: Chronic kidney disease stage: stage 3 (moderate) Chronic kidney disease stage 3 subtype: stage 3b (GFR 30-44) Qualified Code(s): N18.32 - Chronic kidney disease, stage 3b - Discharge Information Instructions: Asthma, Adult, [id number] Referrals: PCP,None [Primary Care Provider] - Forms: ED Department Discharge Additional Instructions: Use your albuterol/ipratropium at home as needed for acute episodes of exacerbation. This is as needed. Budesonide, 1 ampule nebulizer twice daily. This medication you take everyday to control your asthma. Just like taking medicine everyday for blood pressure to control your blood pressure you need budesonide to control your asthma every day twice daily. RX given to the patient. Continue your other previous medications. Prednisone 60mg daily for the next 5 days. RX given to the patient. Return to the ED if new or worsening symptoms. Follow up with PCP this week for recheck and consider a nephrology consult with your worsening kidney function. Make sure and drink plenty of fluids and really push the fluids the next few days. Sepsis Event Note (ED) - Evaluation Sepsis Screening Result: No Definite Risk - Focused Exam Vital Signs: Vital Signs Temp Pulse Resp BP Pulse Ox 11/10/20 02:29 98.2 F 78 17 136/93 H 92 L - My Orders Last 24 Hours: My Active Orders 11/10/20 02:46 Peripheral IV Insertion Adult [OM.PC] Stat - Assessment/Plan Last 24 Hours: My Active Orders 11/10/20 02:46 Peripheral IV Insertion Adult [OM.PC] Stat
--- NOTE | 2020-11-10 03:24 | CR ---
PROCEDURE INFORMATION: Exam: XR Chest Exam date and time: 11/10/2020 3:02 AM Age: 55 years old Clinical indication: Cough; Additional info: Cp SOB TECHNIQUE: Imaging protocol: XR of the chest. Views: 2 views. COMPARISON: CR Chest 1V Frontal 04/27/2020 9:04 PM FINDINGS: Lungs: Unremarkable. No consolidation. Pleural spaces: Unremarkable. No pleural effusion. No pneumothorax. Heart/Mediastinum: Unremarkable. No cardiomegaly. Bones/joints: Unremarkable. IMPRESSION: No acute findings.
[2020-11-10 03:28] LABS: ANION GAP 11.4 mEq/L (7-13); CHLORIDE,CL 99 mmol/L (98-107); SODIUM,NA 135 mmol/L (136-145)
[2020-11-10] MEDS ORDERED: Lactated Ringers 1,000 ML IV ONE (03:32)
[2020-11-10] MEDS ORDERED: Albuterol 0.083% 2.5 MG/3 ML Neb Soln NEB ONE (03:40)
--- NOTE | 2020-11-10 06:26 | PCM.EKG ---
#1 Interpretation EKG Date: 11/10/20 Time: 02:42 Rhythm: NSR Rate (Beats/Min): 81 [place]: Normal P-Wave: Present QRS: Normal ST-T: Normal QT: Normal Comparison: No Change
== END 2020-11-10 04:54 | disposition home or self-care (01) ==
LOC: DL.ED 02:40
DX: J45.901 Unspecified asthma with (acute) exacerbation (principal); I12.9 Hypertensive chronic kidney disease with stage 1 through stage 4 chronic kidney disease, or unspecified chronic kidney disease; N18.32 Chronic kidney disease, stage 3b; K21.9 Gastro-esophageal reflux disease without esophagitis; M19.90 Unspecified osteoarthritis, unspecified site; E03.9 Hypothyroidism, unspecified; E66.9 Obesity, unspecified; Z68.30 Body mass index [BMI] 30.0-30.9, adult; Z88.0 Allergy status to penicillin; Z88.5 Allergy status to narcotic agent; Z79.82 Long term (current) use of aspirin; Z79.899 Other long term (current) drug therapy; Z20.822 Contact with and (suspected) exposure to COVID-19
CPT/HCPCS: 36415; 71046; 80053; 83605; 84484; 85025; 87635; 93005; 93010; 96374; 99284; 99285; J2930; J7120; J7613-GY; J7620-GY; U0002

== ENCOUNTER 2021-04-04 17:42 | Emergency (ER) | payer MEDICAID ==
[2021-04-04 19:37] VITALS: BP 120/84
[2021-04-04] MEDS ORDERED: Albuterol/Ipratropium 3.0-0.5 MG/3 ML Neb Soln NEB ONE (19:41)
[2021-04-04 20:03] VITALS: PULSE 96
[2021-04-04 20:08] LABS: ANION GAP 15.3 mEq/L (7-13)
[2021-04-04] MEDS ORDERED: methylPREDNISolone Sodium Succinate 125 MG/2 ML SDV IM ONE (20:33)
--- NOTE | 2021-04-04 20:33 | EDM.PDOC ---
ED HPI GENERAL MEDICAL PROBLEM - General Chief Complaint: Respiratory Problem Stated Complaint: 97.4 *, BREATHING, OXYGEN LOW Time Seen by Provider: 04/04/21 20:28 Source of Information: Reports: Patient - History of Present Illness INITIAL COMMENTS - FREE TEXT/NARRATIVE: Pt is here for an asthma attack. He reports that he gets these attacks several times a year and they "just come on and come on strong". This current episode started about 4-5 days ago and seems to be getting worse. He did see his PCP yesterday who advised him to come to the ER, but he was scared so he stayed at home. He notes he has been using his steroid inhaler every day and his rescue inhaler several times a day. No fevers or chills. He was negative for COVID yesterday. No known sick contacts. Pt notes his breathing is improved by using his rescue inhaler and his nebulizer at home. He does not wear oxygen at home. He does not take his steroid inhaler outside of acute flares. 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 Treatments - Related Data Allergies Allergy/AdvReac Type Severity Reaction Status Date / Time Penicillins Allergy Other Verified 08/03/20 16:40 codeine AdvReac Nausea and Verified 08/03/20 16:40 Vomiting Home Meds: Home Meds Albuterol [Proventil HFA] 2 puff INH QID PRN 08/16/14 [History] Aspirin [Halfprin] 81 mg PO DAILY 08/16/14 [History] hydroCHLOROthiazide [Hydrochlorothiazide] 50 mg PO DAILY 08/16/14 [History] Levothyroxine Sodium [Euthyrox] 75 mcg PO DAILY 03/21/20 [History] Omeprazole 20 mg PO DAILY 03/21/20 [History] lisinopriL [Lisinopril] 20 mg PO DAILY 03/21/20 [History] Acetaminophen [Acetaminophen Extra Strength] 1,000 mg PO QID PRN 04/18/20 [History] Albuterol/Ipratropium [DuoNeb 3.0-0.5 MG/3 ML] 3 ml NEB Q6HRRT PRN #30 neb 04/30/20 [Rx] Budesonide [Pulmicort] 0.5 mg IH BID #28 neb 04/30/20 [Rx] Ferrous Sulfate 325 mg PO DAILY 06/19/20 [History] diphenhydrAMINE [Benadryl] 100 mg PO BEDTIME 06/19/20 [History] Past Medical History HEENT History: Reports: None Cardiovascular History: Reports: Hypertension Respiratory History: Reports: Asthma Gastrointestinal History: Reports: Chronic Constipation, Colon Polyp, GERD, GI Bleed, Hepatitis Genitourinary History: Reports: None Musculoskeletal History: Reports: Arthritis, Osteoarthritis Neurological History: Reports: None Psychiatric History: Reports: Anxiety Endocrine/Metabolic History: Reports: Hypothyroidism, Obesity/BMI 30+ Hematologic History: Reports: Anemia, Blood Transfusion(s) Immunologic History: Reports: None Oncologic (Cancer) History: Reports: None Dermatologic History: Reports: Other (See Below) Other Dermatologic History: edema DONTA LE - Infectious Disease History Infectious Disease History: Reports: Hepatitis C - Past Surgical History Head Surgeries/Procedures: Reports: None HEENT Surgical History: Reports: None Cardiovascular Surgical History: Reports: None Respiratory Surgical History: Reports: None GI Surgical History: Reports: Colonoscopy, EGD, Polypectomy Male Surgical History: Reports: None Endocrine Surgical History: Reports: None Neurological Surgical History: Reports: None Musculoskeletal Surgical History: Reports: None Oncologic Surgical History: Reports: None Social & Family History - Family History Family Medical History: No Pertinent Family History - Tobacco Use Tobacco Use Status *Q: Never Tobacco User Second Hand Smoke Exposure: No - Caffeine Use Caffeine Use: Reports: Coffee, Soda Other Caffeine Use: AVERAGE 3 BEVERAGES DAILY - Recreational Drug Use Recreational Drug Use: No - Living Situation & Occupation Occupation: Employed ED ROS GENERAL - Review of Systems Review Of Systems: Comprehensive ROS is negative, except as noted in HPI. ED EXAM, GENERAL - Physical Exam Exam: See Below Exam Limited By: No Limitations General Appearance: Alert, WD/WN, No Apparent Distress Eye Exam: Bilateral Eye: Normal Inspection Ears: Normal External Exam, Normal Canal, Normal TMs Nose: Normal Inspection, No Blood Throat/Mouth: Normal Inspection, Normal Voice, No Airway Compromise Head: Atraumatic, Normocephalic Neck: Normal Inspection, Supple, Non-Tender Respiratory/Chest: No Respiratory Distress, No Accessory Muscle Use, Wheezing Cardiovascular: Normal Peripheral Pulses, Regular Rate, Rhythm, No Edema, No Murmur GI/Abdominal: Soft, Non-Tender, No Distention (Male) Exam: Deferred Rectal (Males) Exam: Deferred Back Exam: Normal Inspection, Full Range of Motion Extremities: Normal Inspection, Normal Range of Motion Neurological: Alert, Oriented, Normal Cognition, No Motor/Sensory Deficits Psychiatric: Normal Affect, Normal Mood Skin Exam: Warm, Dry, Intact, Normal Color, No Rash Lymphatic: No Adenopathy Course - Vital Signs Last Recorded V/S: Last Vital Signs Temp 96.9 F 04/04/21 19:32 Pulse 96 04/04/21 20:02 Resp 20 04/04/21 19:32 BP 120/84 04/04/21 19:32 Pulse Ox 90 L 04/04/21 20:02 - Orders/Labs/Meds Orders: Active Orders 24 hr Category Date Time Status RT Aerosol Therapy [RC] ASDIRECTED Care 04/04/21 19:42 Active Labs: Laboratory Tests 04/04/21 04/04/21 Range/Units 19:45 19:45 WBC 9.7 (5.0-10.0) 10^3/uL RBC 5.33 (4.6-6.2) 10^6/uL Hgb 16.1 D (14.0-18.0) g/dL Hct 47.8 (40.0-54.0) % MCV 89.7 (80-100) fL MCH 30.2 (27.0-34.0) pg MCHC 33.7 (33.0-35.0) g/dL Plt Count 418 (150-450) 10^3/uL Neut % (Auto) 55.3 (42.2-75.2) % Lymph % (Auto) 20.3 L (20.5-50.1) % [place] % (Auto) 9.5 H (2-8) % Eos % (Auto) 13.8 H (1.0-3.0) % Baso % (Auto) 1.1 H (0.0-1.0) % Sodium 136 (136-145) mmol/L Potassium 4.3 (3.5-5.1) mmol/L Chloride 100 (98-107) mmol/L Carbon Dioxide 25 (21-32) mmol/L Anion Gap 15.3 H (7-13) mEq/L BUN 20 H (7-18) mg/dL Creatinine 1.66 H (0.70-1.30) mg/dL Est Cr Clr Drug Dosing 44.31 mL/min Estimated GFR (MDRD) 43 BUN/Creatinine Ratio 12.0 (No establ ref range) Glucose 105 H (70-99) mg/dL Calcium 9.0 (8.5-10.1) mg/dL Total Bilirubin 0.5 (0.2-1.0) mg/dL AST 35 (15-37) U/L ALT 34 (16-63) U/L Alkaline Phosphatase 73 (46-116) U/L Total Protein 8.4 H (6.4-8.2) g/dL Albumin 4.0 (3.4-5.0) g/dL Globulin 4.4 Albumin/Globulin Ratio 0.9 Meds: Medications Discontinued Medications Generic Name Dose Route Start Last Admin Trade Name Freq PRN Reason Stop Dose Admin Albuterol/Ipratropium 3 ml 04/04/21 19:41 04/04/21 19:45 Albuterol/Ipratropium 3.0-0.5 Mg/3 Ml Neb Soln NEB 04/04/21 19:42 3 ml ONETIME ONE Administration Methylprednisolone Sodium Succinate 125 mg 04/04/21 20:33 04/04/21 20:50 Methylprednisolone Sodium Succinate 125 Mg/2 Ml Sdv IM 04/04/21 20:34 125 mg ONETIME ONE Administration - Re-Assessments/Exams Free Text/Narrative Re-Assessment/Exam: Pt reports he is feeling a little better. Reviewed labs and negative CXR with the pt. He has enough steroid inhaler to increase to twice daily for a few days. Advised to follow up with his PCP about medication management to prevent the frequent occurrence of his asthma flares. 04/04/21 21:44 Departure - Departure Time of Disposition: 21:46 Disposition: Home, Self-Care 01 Condition: Fair Clinical Impression: Acute asthma - Discharge Information *PRESCRIPTION DRUG MONITORING PROGRAM REVIEWED*: Not Applicable *COPY OF PRESCRIPTION DRUG MONITORING REPORT IN PATIENT TAHIR: Not Applicable Instructions: Asthma, Adult, [id number] Forms: ED Department Discharge Additional Instructions: Increase your steroid inhaler to twice daily for a few days. Prednisone daily for 5 days, fill the prescription at the pharmacy tomorrow Follow up with your primary care provider about medication management to prevent the frequent occurrence of his asthma flares. If your symptoms worsen, call/return to the ER Sepsis Event Note (ED) - Focused Exam Vital Signs: Vital Signs Temp Pulse Resp BP Pulse Ox 04/04/21 20:02 96 90 L 04/04/21 19:32 96.9 F 90 20 120/84 85 L - My Orders Last 24 Hours: My Active Orders 04/04/21 19:42 RT Aerosol Therapy [RC] ASDIRECTED - Assessment/Plan Last 24 Hours: My Active Orders 04/04/21 19:42 RT Aerosol Therapy [RC] ASDIRECTED
--- NOTE | 2021-04-04 21:37 | CR ---
PROCEDURE INFORMATION: Exam: XR Chest Exam date and time: 04/04/2021 8:00 PM Age: 55 years old Clinical indication: Shortness of breath TECHNIQUE: Imaging protocol: XR of the chest. Views: 2 views. COMPARISON: CR Chest 2V 11/10/2020 3:02 AM FINDINGS: Lungs: Clear lungs. Pleural spaces: No pneumothorax. No sizable pleural effusion. Heart/Mediastinum: No cardiomegaly. Bones/joints: Unremarkable. IMPRESSION: Clear lungs.
== END 2021-04-04 21:55 | disposition home or self-care (01) ==
LOC: DL.ED 17:42
DX: J45.909 Unspecified asthma, uncomplicated (principal); I10 Essential (primary) hypertension; K21.9 Gastro-esophageal reflux disease without esophagitis; E03.9 Hypothyroidism, unspecified; E66.9 Obesity, unspecified; Z68.28 Body mass index [BMI] 28.0-28.9, adult; Z79.82 Long term (current) use of aspirin; Z79.899 Other long term (current) drug therapy; Z88.0 Allergy status to penicillin; Z88.5 Allergy status to narcotic agent
CPT/HCPCS: 36415; 71046; 80053; 85025; 96372; 99285; J2930; J7620-GY

== ENCOUNTER 2021-11-05 23:11 | Emergency (ER) | payer MEDICAID ==
[2021-11-05] MEDS ORDERED: EPINEPHrine 1:10,000 1 MG/10 ML Syringe IVPUSH ONE ×2 (23:21→23:28)
[2021-11-05] MEDS ORDERED: Sodium Bicarbonate 8.4% 50 MEQ/50 ML Syringe IVPUSH ONE ×2 (23:24→23:30)
[2021-11-05] MEDS ORDERED: Amiodarone 150 MG/3 ML SDV IVPUSH ONE (23:26)
[2021-11-05] MEDS ORDERED: Calcium Gluconate 10% 1 GM/10 ML SDV IVPUSH ONE (23:28)
[2021-11-05 23:40] LABS: PTT,PARTIAL THROMBOPLSTIN TIME 27.7 SEC (22.0-34.0)
[2021-11-05 23:45] LABS: ANION GAP 23.3 mEq/L (7-13); CHLORIDE,CL 95 mmol/L (98-107); SODIUM,NA 133 mmol/L (136-145)
[2021-11-06 02:32] LABS: AMPHETAMINES,URINE POSITIVE (NEGATIVE); BARBITURATES,URINE NEGATIVE (NEGATIVE); BENZODIAZEPINE,URINE NEGATIVE (NEGATIVE); MDMA (ECSTASY), URINE POSITIVE (NEGATIVE); METHADONE,URINE NEGATIVE (NEGATIVE); METHAMPHETAMINES,URINE POSITIVE (NEGATIVE); OPIATES,URINE NEGATIVE (NEGATIVE); OXYCODONE,URINE NEGATIVE (NEGATIVE); PHENCYCLIDINE,URINE NEGATIVE (NEGATIVE); TCA,URINE NEGATIVE (NEGATIVE)
[2021-11-12] MEDS ORDERED: EPINEPHrine 1:10,000 1 MG/10 ML Syringe IVPUSH ONE ×2 (23:21→23:28)
[2021-11-12] MEDS ORDERED: Sodium Bicarbonate 8.4% 50 MEQ/50 ML Syringe IVPUSH ONE ×2 (23:24→23:30)
[2021-11-12] MEDS ORDERED: Amiodarone 150 MG/3 ML SDV IVPUSH ONE (23:26)
== END 2021-11-06 02:16 | disposition expired ==
LOC: EDBD → EDUNIT# 23:11 → DL.ED 23:11
DX: I46.9 Cardiac arrest, cause unspecified (principal); J44.9 Chronic obstructive pulmonary disease, unspecified; E03.9 Hypothyroidism, unspecified; I10 Essential (primary) hypertension; M19.90 Unspecified osteoarthritis, unspecified site; E66.9 Obesity, unspecified; Z68.30 Body mass index [BMI] 30.0-30.9, adult; Z88.0 Allergy status to penicillin; Z88.5 Allergy status to narcotic agent; Z79.82 Long term (current) use of aspirin; Z79.899 Other long term (current) drug therapy
CPT/HCPCS: 31500; 36415; 80053; 80305-QW; 83735; 83880; 84484; 85025; 85610; 85730; 92950; 96374; 96375; 99285; 99285-25